=== PATIENT | male | born 1935 | race Two or more races ===

== ENCOUNTER 2019-01-08 14:50 | Inpatient (IN) | payer MEDICARE, BC ==
[~2019-01-08] VITALS: Ht 177.8 cm; Wt 51.0 kg
[2019-01-08 15:10] VITALS: BP 125/75; PULSE 78; RESP 18
[2019-01-08 15:30] VITALS: Ht 177.8 cm; Wt 51.0 kg
[2019-01-08] MEDS ORDERED: ONDANSETRON 4 MG INJ IV PRN (16:30)
[2019-01-08] MEDS ORDERED: ACETAMINOPHEN 325 MG TAB PO PRN (16:30)
[2019-01-08] MEDS ORDERED: ALUMINUM HYDROXIDE 30 ML CUP PO PRN (16:30)
[2019-01-08] MEDS ORDERED: LACTULOSE 30ML CUP PO PRN (16:30)
[2019-01-08] MEDS ORDERED: MAGNESIUM HYDROXIDE 30ML CUP PO PRN (16:30)
[2019-01-08] MEDS ORDERED: BISACODYL 10 MG SUPP PR PRN (16:30)
[2019-01-08 19:30] VITALS: BP 132/68; PULSE 72; RESP 18
[2019-01-08] MEDS ORDERED: MELATONIN 5 MG TABLET PO SCH (21:00)
[2019-01-08] MEDS ORDERED: DOCUSATE SODIUM 100 MG CAP PO SCH (21:00)
[2019-01-08] MEDS: LACTOBACILLUS RHAMNOSUS CAP PO SCH (21:14)
[2019-01-08] MEDS: SENNA TAB PO SCH (21:14)
--- NOTE | 2019-01-08 23:23 | HP ---
DATE OF ADMISSION: 01/08/2019 CHIEF COMPLAINT: Encephalopathy debility and sepsis. HISTORY OF PRESENT ILLNESS: This is an 83-year-old male with a past medical history of dementia and history of weight loss who presented to [facility] after suffering a fall. The patient up on arrival to the outside hospital was noted to be septic secondary to pneumonia. The patient also n oted to have severe hypernatremia, acute kidney injury, non-STEMI, and encephalopathic. The patient was treated with IV fluids, IV diuretics, and IV hydration with resolution of pneumonia and hyponatre marcelo. The patient, however, was also noted to have severe malnutrition, which was unclear. Workup in cluded a CT scan of the brain, which showed no acute pathology. A chest x-ray was obtained, which di d show a right lung nodule but in the setting of pneumonia, it could not be ruled out for possible re action process. The patient was eventually stabilized and transferred to [facility] for further care and rehabilitation. Upon my evaluation of the patient at this time, he is currently lethargic, frail, and weak. The lilian ent is confused, alert, and oriented to name only but in no apparent distress. PAST MEDICAL HISTORY: As stated above, history of dementia and history of recent weight loss. FAMILY HISTORY: No family history of kidney disease. SOCIAL HISTORY: Does not drink, smoke, or do drugs. MEDICATIONS: The patient's medications have been reviewed. PAST SURGICAL HISTORY: Reviewed. REVIEW OF SYSTEMS: A 14-point review of systems conducted. Pertinent positives stated in HPI, other stephenson negative. PHYSICAL EXAMINATION: VITAL SIGNS: Blood pressure is 125/75, respiration 18, pulse 78, and temperature 98.2. HEENT: Head is normocephalic. Bilateral temporal wasting. NECK: Supple. HEART: Regular rate. LUNGS: Show diminished breath sounds at the base. ABDOMEN: Soft. Nontender to palpation. No rebound or guarding. EXTREMITIES: Negative for clubbing or cyanosis. No edema. DERMATOLOGIC: No rashes. MUSCULOSKELETAL: No joint effusion. NEUROLOGIC: No change in exam. MEDICATIONS: The patient's medications have been reviewed. LABORATORY DATA: Currently pending. ASSESSMENT AND PLAN: This is an 83-year-old male who presents with: 1. Acute encephalopathy on dementia. Etiology is felt to be secondary to toxic metabolic. The lilian ent's CT scan at the outside hospital showed no acute cerebrovascular accident. We will continue to monitor. Consider a neurologic evaluation. 2. Sepsis secondary to urinary tract infection and pneumonia. The patient has completed antibiotic course. Continue to monitor. 3. Acute kidney injury. Etiology is secondary to hemodynamics. Renal functions improved. We will follow up renal panel. Urinalysis, monitor closely. 4. Anemia. Monitor hemoglobin and hematocrit levels. 5. Severe malnutrition, weight loss. Etiology is unclear. A chest x-ray did show evidence of pulmo nary nodule, unclear if this is malignancy. Plan is to do a full evaluation. We will repeat chest x -ray. Consider a colonoscopy for age-appropriate cancer screening. We will check the PSA level and monitor closely. 6. Arrhythmia. The patient is currently in sinus rhythm. Continue to monitor. 7. Insomnia. Continue melatonin. 8. Constipation. Continue Colace. 9. Gastrointestinal and deep vein thrombosis prophylaxis. We will start the patient on Lovenox and PPI. Dictated By: GELY KIMBLE DO NR/NTS Conf#: [id number] DID#: [id number] CC: PRIMITIVO WHITEHEAD MD; MICHELLE LUTHER PHD; GELY KIMBLE DO;*EndCC*
[2019-01-09 02:00] VITALS: BP 127/72; PULSE 75; RESP 18
[2019-01-09 07:30] VITALS: BP 103/53; PULSE 72; RESP 18
[2019-01-09] MEDS: DOCUSATE SODIUM 10 MG/ML (10ML CUP) PO SCH ×2 (09:07→20:20)
[2019-01-09] MEDS: LACTOBACILLUS RHAMNOSUS CAP PO SCH ×2 (09:07→20:20)
[2019-01-09] MEDS: FAMOTIDINE 20 MG TAB PO SCH ×2 (09:24→20:20)
[2019-01-09] MEDS: ENOXAPARIN 30 MG/0.3 ML SYG SC SCH (09:28)
[2019-01-09] MEDS ORDERED: MELATONIN 5 MG TABLET PO PRN (10:30)
--- NOTE | 2019-01-09 12:11 | PN ---
DATE: 01/09/2019 SUBJECTIVE: The patient is stable, no events overnight. No fevers or chills. OBJECTIVE: VITAL SIGNS: Blood pressure is 103/53, pulse 72, respirations 18, temperature 98.1. HEENT: Head is normocephalic. There is bilateral temporal wasting. NECK: Supple. HEART: Regular rate. LUNGS: Show diminished breath sounds at the base. ABDOMEN: Soft, nontender to palpation without rebound or guarding. EXTREMITIES: Negative for clubbing, cyanosis, no edema. DERMATOLOGIC: No rashes. MUSCULOSKELETAL: Noted excoriations. NEUROLOGIC: Generalized weakness, no focal deficits. MEDICATIONS: Reviewed. LABORATORY DATA: The patient's urinalysis is bland. Sodium 138, potassium 4.6, BUN 21, creatinine 0 .81, albumin 2.8. White count 6.7, hemoglobin 9.4, platelet count is 214. IMAGING STUDY: The patient's chest x-ray is pending. ASSESSMENT AND PLAN: 1. Acute encephalopathy on top of dementia. Etiology is felt to be toxic metabolic. CT scan showed no acute cerebrovascular accident. Continue to monitor. 2. Sepsis secondary to urinary tract infection and pneumonia. The patient is completing antibiotic course. Continue to monitor. 3. Acute kidney injury. Etiology is secondary to hemodynamics. Renal function is improved. Contin ue current treatment plan. 4. Anemia. Continue to monitor hemoglobin and hematocrit levels. 5. Severe malnutrition and weight loss, etiology is unclear. Chest x-ray an outside hospital showed pulmonary nodule, unclear if this is malignancy or reactive. We will do a full evaluation. We will repeat chest x-ray. Check PSA level. Consider GI consult for colonoscopy. Monitor closely. 6. Arrhythmia, currently in sinus rhythm. Continue to monitor. 7. Constipation. Continue Colace. 8. Insomnia. Continue melatonin. 9. Gastrointestinal and deep vein thrombosis prophylaxis. Continue Lovenox and proton pump inhibito r. Dictated By: GELY KIMBLE DO NR/NTS Conf#: [id number] DID#: [id number] CC: GELY KIMBLE DO; PRIMITIVO WHITEHEAD MD; MICHELLE LUTHER PHD;*EndCC*
[2019-01-09] MEDS: FOLIC ACID 1 MG TAB PO SCH (12:15)
[2019-01-09] MEDS: ASCORBIC ACID 500 MG TAB PO SCH (12:15)
[2019-01-09] MEDS: MULTIVITAMINS THERAPEUTIC TAB PO SCH (12:16)
--- NOTE | 2019-01-09 13:36 | PN ---
Date/Time of Note Date/Time of Note DATE: 01/09/19 TIME: 13:36 Objective Vital Signs Date Temp Pulse Resp B/P (MAP) Pulse Ox O2 O2 Flow FiO2 Time Delivery Rate 01/09/19 98.1 72 18 103/53 97 Room Air 07:30 (70) Intake and Output 01/08/19 01/08/19 01/09/19 1515:00 23:00 07:00 IntakeIntake Total 100 ml BalanceBalance 100 ml Results/Medications Result Diagram: 01/09/19 0608 01/09/19 0608 Results 24 hrs Laboratory Tests Test 01/09/19 06:08 01/09/19 07:25 White Blood Count 6.7 Red Blood Count 3.03 L Hemoglobin 9.4 L Hematocrit 30.1 L Mean Corpuscular Volume 99.3 Mean Corpuscular Hemoglobin 31.0 Mean Corpuscular Hemoglobin Concent 31.2 L Red Cell Distribution Width 16.3 H Platelet Count 214 Mean Platelet Volume 11.2 H Immature Granulocytes % 0.300 Neutrophils % 61.6 Lymphocytes % 22.8 Monocytes % 11.9 H Eosinophils % 3.0 Basophils % 0.4 Nucleated Red Blood Cells % 0.0 Immature Granulocytes # 0.020 Neutrophils # 4.2 Lymphocytes # 1.5 Monocytes # 0.8 Eosinophils # 0.2 Basophils # 0.0 Nucleated Red Blood Cells # 0.0 Sodium Level 138 Potassium Level 4.6 Chloride Level 107 Carbon Dioxide Level 29 Anion Gap 2 L Blood Urea Nitrogen 21 H Creatinine 0.81 Est Glomerular Filtrat Rate mL/min Glucose Level 79 Calcium Level 8.6 Iron Level 40 Total Iron Binding Capacity 231 L Percent Iron Saturation 17 L Ferritin 403.0 H Total Bilirubin 0.0 L Direct Bilirubin 0.00 Indirect Bilirubin 0.0 Aspartate Amino Transf (AST/SGOT) 27 Alanine Aminotransferase (ALT/SGPT) 23 Alkaline Phosphatase 57 Total Protein 5.9 L Albumin 2.8 L Globulin 3.10 Albumin/Globulin Ratio 0.90 Prostate Specific Antigen 0.4 Urine Color STRAW Urine Clarity CLEAR Urine pH 7.0 Urine Specific [place] 1.003 Urine Ketones NEGATIVE Urine Nitrite NEGATIVE Urine Bilirubin NEGATIVE Urine Urobilinogen NEGATIVE Urine Leukocyte Esterase NEGATIVE Urine Hemoglobin NEGATIVE Urine Glucose NEGATIVE Urine Total Protein NEGATIVE Medications Current Medications Acetaminophen (Tylenol Tab) 650 mg Q6H PRN PO MILD PAIN(1-3)OR ELEVATED TEMP; Start 01/08/19 at 16:30 Aluminum Hydroxide (Aluminum Hydroxide) 30 ml Q6H PRN PO GASTROINTESTINAL UPSET; Start 01/08/19 at 16:30 Lactobacillus Acidophilus/ Rhamnosus (Culturelle) 1 cap BID PO Last administered on 01/09/19 09:07; Admin Dose 1 CAP; Start 01/08/19 at 21:00 Ondansetron HCl (Zofran Inj) 4 mg Q6H PRN IV NAUSEA AND/OR VOMITING; Start 01/08/19 at 16:30 Senna (Senokot) 1 tab HS PO Last administered on 01/08/19 21:14; Admin Dose 1 TAB; Start 01/08/19 at 21:00 Magnesium Hydroxide (Milk Of Mag) 30 ml BID PRN PO CONSTIPATION; Start 01/08/19 at 16:30 Lactulose (Enulose) 20 gm DAILY PRN PO CONSTIPATION; Start 01/08/19 at 16:30 Bisacodyl (Dulcolax Supp) 10 mg DAILY PRN [place] CONSTIPATION; Start 01/08/19 at 16:30 Docusate Sodium (Colace Liquid Cup) 100 mg BID PO Last administered on 01/09/19 09:07; Admin Dose 100 MG; Start 01/09/19 at 09:00 Enoxaparin Sodium (Lovenox) 30 mg DAILY SC Last administered on 01/09/19 09:28; Admin Dose 30 MG; Start 01/09/19 at 10:00 Famotidine (Pepcid) 20 mg BID PO Last administered on 01/09/19 09:24; Admin Dose 20 MG; Start 01/09/19 at 10:00 Melatonin (Melatonin) 5 mg HS PRN PO SLEEP; Start 01/09/19 at 10:30 Multivitamins Therapeutic (Theragran) 1 tab DAILY PO Last administered on 01/09/19 12:16; Admin Dose 1 TAB; Start 01/09/19 at 12:00 Folic Acid (Folic Acid) 1 mg DAILY PO Last administered on 01/09/19 12:15; Admin Dose 1 MG; Start 01/09/19 at 12:00 Ascorbic Acid (Vitamin C) 500 mg DAILY PO Last administered on 01/09/19 12:15; Admin Dose 500 MG; Start 01/09/19 at 12:00 PRIMITIVO WHITEHEAD MD Jan 09, 2019 13:36
[2019-01-09 14:00] VITALS: BP 126/82; PULSE 67; RESP 18
--- NOTE | 2019-01-09 14:13 | CONS ---
DATE OF ADMISSION: 01/08/2019 DATE OF CONSULTATION: 01/09/2019 TYPE OF CONSULTATION: Rehabilitation post-admission physician evaluation. REHABILITATION IMPAIRMENT CATEGORY: Toxic metabolic encephalopathy superimposed on mild dementia. ACTIVE COMORBIDITIES: 1. Status post sepsis. 2. Status post pneumonia. 3. Acute kidney injury. 4. Status post non-ST elevation [place]. 5. Right pulmonary nodule. 6. Malnutrition. 7. Dysphagia. 8. Sacral and heel blanchable erythema 8. Impairments in self-care, mobility and cognition. HISTORY OF PRESENT ILLNESS: The patient is an 83-year-old gentleman who has a history of mild dementia who reportedly had been ambulating independently who was noted to have worsening confusion, poor oral intake and increased weakness. The patient presented to [facility] and was noted to have acute on chronic encephalopathy, acute renal failure, sepsis and pneumonia, non-ST elevation [place]. The patient was also noted to have malnutrition. The patient's workup also did reveal right pulmonary nodule. The patient was noted to have significant impairments in self-care, mobility and cognition as compared to baseline and has been cleared to transfer to the rehabilitation unit for comprehensive interdisciplinary rehab care. FUNCTIONAL HISTORY: Prior to recent events as per the family, the patient was independent in self-care tasks and mobility. Currently, the patient requires maximal assist for self-care and mobility tasks. I have reviewed the preadmission screen and patient's current functional status is consistent with the preadmission screen. FAMILY AND SOCIAL HISTORY: The patient lives at home with his son and they hope to have him return there upon discharge. PAST MEDICAL HISTORY: Mild dementia. CURRENT MEDICATIONS: 1. Ambien 5 mg p.o. at bedtime p.r.n. 2. Vancomycin IV, which has been discontinued. Please see medication list. PHYSICAL EXAMINATION: VITAL SIGNS: The patient is currently afebrile with stable vital signs. HEENT: Extraocular motions appear intact. Oropharynx is clear. NECK: Supple. LUNGS: Clear anteriorly. CARDIAC: S1, S2. ABDOMEN: Soft, nontender, positive bowel sounds. NEUROLOGIC: He is awake and alert. He is oriented to person. He will follow simple 1-step commands. He demonstrates antigravity strength in bilateral upper extremity and lower extremity. He does have impaired dynamic balance. PLAN: The patient has been admitted for comprehensive interdisciplinary acute rehab and is anticipated to tolerate 3 hours of daily therapy in divided doses for at least 5/7 days a week. The treatment plan will include: 1. Physical therapy to focus on bed mobility, transfers and household ambulation with the goal of having patient reach a standby assist level. 2. Occupational therapy to focus on hygiene, grooming, dressing, bathing and toileting activities with the goal of having patient reach standby assist level. 3. Speech therapy for full cognitive assessment and retraining in addition to dysphagia management with the goal of having patient return to baseline cognition and meet nutritional needs by mouth. 4. We will have neuropsychology for full cognitive assessment and oversight. We will also have physical therapy and occupational therapy carryover of cognitive functional tasks. 5. Rehabilitation nursing for carryover of therapeutic interventions, the goal of continent of bowel and bladder and the goal of improved skin integrity with offloading, improved nutrition and mobility. REHABILITATION BARRIER: Cognition. INTERVENTION FOR BARRIER: Interdisciplinary approach. ESTIMATED LENGTH OF STAY: 14 days. DISPOSITION GOAL: Home. I acknowledge that I performed a full physical examination on this patient within 24 hours of admission to the rehabilitation unit. I believe the patient is a good candidate for comprehensive interdisciplinary rehab care and is anticipated to make reasonable goals in a reasonable period of time as outlined above. Dictated By: PRIMITIVO SILVA/EUGENE Conf#: [id number] DID#: [id number] CC: GELY KIMBLE DO; MICHELLE LUTHER PHD;*EndCC* MTDD
[2019-01-09 19:27] VITALS: BP 114/62; PULSE 73; RESP 18
[2019-01-09] MEDS: SENNA TAB PO SCH (20:20)
[2019-01-10 02:11] VITALS: BP 114/77; PULSE 68; RESP 18
[2019-01-10 07:00] VITALS: BP 138/63; PULSE 54; RESP 17
[2019-01-10] MEDS: LACTOBACILLUS RHAMNOSUS CAP PO SCH ×2 (08:08→20:46)
[2019-01-10] MEDS: FAMOTIDINE 20 MG TAB PO SCH ×2 (08:08→20:46)
[2019-01-10] MEDS: ASCORBIC ACID 500 MG TAB PO SCH (08:08)
[2019-01-10] MEDS: MULTIVITAMINS THERAPEUTIC TAB PO SCH (08:08)
[2019-01-10] MEDS: FOLIC ACID 1 MG TAB PO SCH (08:08)
[2019-01-10] MEDS: DOCUSATE SODIUM 10 MG/ML (10ML CUP) PO SCH ×3 (08:08→20:46)
[2019-01-10] MEDS: ENOXAPARIN 30 MG/0.3 ML SYG SC SCH (08:09)
--- NOTE | 2019-01-10 08:44 | PN ---
Date/Time of Note Date/Time of Note DATE: 01/10/19 TIME: 08:42 Assessment/Plan VTE Prophylaxis Risk score (from Ns)>0 risk: 4 SCD applied (from Ns): No SCD contraindicated: other Pharmacological prophylaxis: other Lines/Catheters IV [facility]atheter Type [facility]from [facility] [place] [facility] Urinary Cath still in place: No Assessment/Plan Hospital Course medicine follow up HISTORY OF PRESENT ILLNESS: This is an 83-year-old male with a past medical history of dementia and history of weight loss who presented to [facility] after suffering a fall. The patient upon arrival to the outside hospital was noted to be septic secondary to pneumonia. The patient also noted to have severe hypernatremia, acute kidney injury, non-STEMI, and encephalopathic. The patient was treated with IV fluids, IV diuretics, and IV hydration with resolution of pneumonia and hyponatremia. The patient, however, was also noted to have severe malnutrition, which was unclear. Workup included a CT scan of the brain, which showed no acute pathology. A chest x-ray was obtained, which did show a right lung nodule but in the setting of pneumonia, it could not be ruled out for possible reaction process. The patient was eventually stabilized and transferred to [facility] for further care and rehabilitation. The patient is confused, alert, and oriented to name only but in no apparent distress. PHYSICAL EXAMINATION: HEENT: Head is normocephalic. Bilateral temporal wasting. NECK: Supple. HEART: Regular rate. LUNGS: Show diminished breath sounds at the base. ABDOMEN: Soft. Nontender to palpation. No rebound or guarding. EXTREMITIES: Negative for clubbing or cyanosis. No edema. DERMATOLOGIC: No rashes. MUSCULOSKELETAL: No joint effusion. NEUROLOGIC: No change in exam. MEDICATIONS: The patient's medications have been reviewed. LABORATORY DATA: reviewed ASSESSMENT AND PLAN: This is an 83-year-old male who presents with: 1. Acute encephalopathy on dementia. Etiology is felt to be secondary to toxic metabolic. The patient's CT scan at the outside hospital showed no acute cerebrovascular accident. We will continue to monitor. Consider a neurologic evaluation. 2. Sepsis secondary to urinary tract infection and pneumonia. The patient has completed antibiotic course. Continue to monitor. 3. Acute kidney injury. Etiology is secondary to hemodynamics. Renal functions improved. We will follow up renal panel. Urinalysis, monitor closely. 4. Anemia. Monitor hemoglobin and hematocrit levels. 5. Severe malnutrition, weight loss. Etiology is unclear. A chest x-ray did show evidence of pulmonary nodule, unclear if this is malignancy. Plan is to do a full evaluation. We will repeat chest x-ray. Consider a colonoscopy for age- appropriate cancer screening. We will check the PSA level and monitor closely. 6. Arrhythmia. The patient is currently in sinus rhythm. Continue to monitor. 7. Insomnia. Continue melatonin. 8. Constipation. Continue Colace. 9. Gastrointestinal and deep vein thrombosis prophylaxis. We will start the patient on Lovenox and PPI. Result Diagram: 01/09/19 0608 01/09/19 0608 Exam/Review of Systems Exam Vitals Vital Signs Date Temp Pulse Resp B/P (MAP) Pulse Ox O2 O2 Flow FiO2 Time Delivery Rate 01/10/19 98.2 68 18 114/77 97 Room Air 02:11 (89) Intake and Output 01/09/19 01/09/19 01/10/19 1515:00 23:00 07:00 IntakeIntake Total 550 ml 1400 ml 1950 ml BalanceBalance 550 ml 1400 ml 1950 ml Medications Medication Current Medications Acetaminophen (Tylenol Tab) 650 mg Q6H PRN PO MILD PAIN(1-3)OR ELEVATED TEMP; Start 01/08/19 at 16:30 Aluminum Hydroxide (Aluminum Hydroxide) 30 ml Q6H PRN PO GASTROINTESTINAL UPSET; Start 01/08/19 at 16:30 Lactobacillus Acidophilus/ Rhamnosus (Culturelle) 1 cap BID PO Last administer ed on 01/10/19at 08:08; Admin Dose 1 CAP; Start 01/08/19 at 21:00 Ondansetron HCl (Zofran Inj) 4 mg Q6H PRN IV NAUSEA AND/OR VOMITING; Start 01/08/19 at 16:30 Senna (Senokot) 1 tab HS PO Last administered on 01/09/19at 20:20; Admin Dose 1 TAB; Start 01/08/19 at 21:00 Magnesium Hydroxide (Milk Of Mag) 30 ml BID PRN PO CONSTIPATION; Start 01/08/19 at 16:30 Lactulose (Enulose) 20 gm DAILY PRN PO CONSTIPATION; Start 01/08/19 at 16:30 Bisacodyl (Dulcolax Supp) 10 mg DAILY PRN [place] CONSTIPATION; Start 01/08/19 at 16:30 Docusate Sodium (Colace Liquid Cup) 100 mg BID PO Last administered on 01/10/19 08:08; Admin Dose 100 MG; Start 01/09/19 at 09:00 Enoxaparin Sodium (Lovenox) 30 mg DAILY SC Last administered on 01/10/19 08:09; Admin Dose 30 MG; Start 01/09/19 at 10:00 Famotidine (Pepcid) 20 mg BID PO Last administered on 01/10/19 08:08; Admin Dose 20 MG; Start 01/09/19 at 10:00 Melatonin (Melatonin) 5 mg HS PRN PO SLEEP; Start 01/09/19 at 10:30 Multivitamins Therapeutic (Theragran) 1 tab DAILY PO Last administered on 01/10/19 08:08; Admin Dose 1 TAB; Start 01/09/19 at 12:00 Folic Acid (Folic Acid) 1 mg DAILY PO Last administered on 01/10/19 08:08; Admin Dose 1 MG; Start 01/09/19 at 12:00 Ascorbic Acid (Vitamin C) 500 mg DAILY PO Last administered on 01/10/19 08:08; Admin Dose 500 MG; Start 01/09/19 at 12:00 YOANNA ASHRAF DO Jan 10, 2019 08:43
--- NOTE | 2019-01-10 08:50 | PN ---
Date/Time of Note Date/Time of Note DATE: 01/10/19 TIME: 08:49 Subjective Awake Objective Vital Signs Date Temp Pulse Resp B/P (MAP) Pulse Ox O2 O2 Flow FiO2 Time Delivery Rate 01/10/19 98.2 68 18 114/77 97 Room Air 02:11 (89) Intake and Output 01/09/19 01/09/19 01/10/19 1515:00 23:00 07:00 IntakeIntake Total 550 ml 1400 ml 1950 ml BalanceBalance 550 ml 1400 ml 1950 ml Exam pulm-cta mod transfer Results/Medications Result Diagram: 01/09/1960701/09/19607 Medications Current Medications Acetaminophen (Tylenol Tab) 650 mg Q6H PRN PO MILD PAIN(1-3)OR ELEVATED TEMP; Start 01/08/19 at 16:30 Aluminum Hydroxide (Aluminum Hydroxide) 30 ml Q6H PRN PO GASTROINTESTINAL UPSET; Start 01/08/19 at 16:30 Lactobacillus Acidophilus/ Rhamnosus (Culturelle) 1 cap BID PO Last administered on 01/10/19at 08:08; Admin Dose 1 CAP; Start 01/08/19 at 21:00 Ondansetron HCl (Zofran Inj) 4 mg Q6H PRN IV NAUSEA AND/OR VOMITING; Start 01/08/19 at 16:30 Senna (Senokot) 1 tab HS PO Last administered on 01/09/19at 20:20; Admin Dose 1 TAB; Start 01/08/19 at 21:00 Magnesium Hydroxide (Milk Of Mag) 30 ml BID PRN PO CONSTIPATION; Start 01/08/19 at 16:30 Lactulose (Enulose) 20 gm DAILY PRN PO CONSTIPATION; Start 01/08/19 at 16:30 Bisacodyl (Dulcolax Supp) 10 mg DAILY PRN [place] CONSTIPATION; Start 01/08/19 at 16:30 Docusate Sodium (Colace Liquid Cup) 100 mg BID PO Last administered on 01/10/19at 08:08; Admin Dose 100 MG; Start 01/09/19 at 09:00 Enoxaparin Sodium (Lovenox) 30 mg DAILY SC Last administered on 01/10/19at 08:09; Admin Dose 30 MG; Start 01/09/19 at 10:00 Famotidine (Pepcid) 20 mg BID PO Last administered on 01/10/19 08:08; Admin Dose 20 MG; Start 01/09/19 at 10:00 Melatonin (Melatonin) 5 mg HS PRN PO SLEEP; Start 01/09/19 at 10:30 Multivitamins Therapeutic (Theragran) 1 tab DAILY PO Last administered on 01/10/19 08:08; Admin Dose 1 TAB; Start 01/09/19 at 12:00 Folic Acid (Folic Acid) 1 mg DAILY PO Last administered on 01/10/19 08:08; Admin Dose 1 MG; Start 01/09/19 at 12:00 Ascorbic Acid (Vitamin C) 500 mg DAILY PO Last administered on 01/10/19 08:08; Admin Dose 500 MG; Start 01/09/19 at 12:00 Assessment/Plan Additional Assessment/Plan Rehab- Toxic metabolic encephalopathy superimposed on mild dementia; Debility Tolerating rehab Integ- continue wound care Status post sepsis. Status post pneumonia. Acute kidney injury. Status post non-ST elevation [place]. Right pulmonary nodule. Malnutrition- improving PO intake Dysphagia-speech PRIMITIVO WHITEHEAD MD Jan 10, 2019 08:50
[2019-01-10 14:30] VITALS: BP 148/64; PULSE 64; RESP 18
[2019-01-10 20:00] VITALS: BP 133/63; PULSE 55; RESP 18
[2019-01-10] MEDS: SENNA TAB PO SCH (20:46)
[2019-01-11 02:30] VITALS: BP 142/63; PULSE 60; RESP 16
--- NOTE | 2019-01-11 07:49 | PN ---
Date/Time of Note Date/Time of Note DATE: 01/11/19 TIME: 07:49 Assessment/Plan VTE Prophylaxis Risk score (from Ns)>0 risk: 4 SCD applied (from Ns): No SCD contraindicated: other Pharmacological prophylaxis: other Lines/Catheters IV Catheter Type (from [facility]): Saline Lock Urinary Cath still in place: No Assessment/Plan Hospital Course medicine follow up HISTORY OF PRESENT ILLNESS: This is an 83-year-old male with a past medical history of dementia and history of weight loss who presented to [facility] after suffering a fall. The patient upon arrival to the outside hospital was noted to be septic secondary to pneumonia. The patient also noted to have severe hypernatremia, acute kidney injury, non-STEMI, and encephalopathic. The patient was treated with IV fluids, IV diuretics, and IV hydration with resolution of pneumonia and hyponatremia. The patient, however, was also noted to have severe malnutrition, which was unclear. Workup included a CT scan of the brain, which showed no acute pathology. A chest x-ray was obtained, which did show a right lung nodule but in the setting of pneumonia, it could not be ruled out for possible reaction process. The patient was eventually stabilized and transferred to [facility] for further care and rehabilitation. The patient is confused, alert, and oriented to name only but in no apparent distress. PHYSICAL EXAMINATION: HEENT: Head is normocephalic. Bilateral temporal wasting. NECK: Supple. HEART: Regular rate. LUNGS: Show diminished breath sounds at the base. ABDOMEN: Soft. Nontender to palpation. No rebound or guarding. EXTREMITIES: Negative for clubbing or cyanosis. No edema. DERMATOLOGIC: No rashes. MUSCULOSKELETAL: No joint effusion. NEUROLOGIC: No change in exam. MEDICATIONS: The patient's medications have been reviewed. LABORATORY DATA: reviewed ASSESSMENT AND PLAN: This is an 83-year-old male who presents with: 1. Acute encephalopathy on dementia. Etiology is felt to be secondary to toxic metabolic. The patient's CT scan at the outside hospital showed no acute cerebrovascular accident. We will continue to monitor. Consider a neurologic evaluation. 2. Sepsis secondary to urinary tract infection and pneumonia. The patient has completed antibiotic course. Continue to monitor. 3. Acute kidney injury. Etiology is secondary to hemodynamics. Renal functions improved. We will follow up renal panel. Urinalysis, monitor closely. 4. Anemia. Monitor hemoglobin and hematocrit levels. 5. Severe malnutrition, weight loss. Etiology is unclear. A chest x-ray did show evidence of pulmonary nodule, unclear if this is malignancy. Plan is to do a full evaluation. We will repeat chest x-ray. Consider a colonoscopy for age- appropriate cancer screening. We will check the PSA level and monitor closely. 6. Arrhythmia. The patient is currently in sinus rhythm. Continue to monitor. 7. Insomnia. Continue melatonin. 8. Constipation. Continue Colace. 9. Gastrointestinal and deep vein thrombosis prophylaxis. We will start the patient on Lovenox and PPI. Result Diagram: 01/09/19 0601/09/19 06 Exam/Review of Systems Exam Vitals Vital Signs Date Temp Pulse Resp B/P (MAP) Pulse Ox O2 O2 Flow FiO2 Time Delivery Rate 01/11/19 97.0 60 16 142/63 96 Room Air 02:30 (89) Intake and Output 01/10/19 01/10/19 01/11/19 1515:00 23:00 07:00 IntakeIntake Total 780 ml 240 ml BalanceBalance 780 ml 240 ml Medications Medication Current Medications Acetaminophen (Tylenol Tab) 650 mg Q6H PRN PO MILD PAIN(1-3)OR ELEVATED TEMP; Start 01/08/19 at 16:30 Aluminum Hydroxide (Aluminum Hydroxide) 30 ml Q6H PRN PO GASTROINTESTINAL UPSET; Start 01/08/19 at 16:30 Lactobacillus Acidophilus/ Rhamnosus (Culturelle) 1 cap BID PO Last administered on 01/10/19at 20:46; Admin Dose 1 CAP; Start 01/08/19 at 21:00 Ondansetron HCl (Zofran Inj) 4 mg Q6H PRN IV NAUSEA AND/OR VOMITING; Start 01/08/19 at 16:30 Senna (Senokot) 1 tab HS PO Last administered on 01/10/19at 20:46; Admin Dose 1 TAB; Start 01/08/19 at 21:00 Magnesium Hydroxide (Milk Of Mag) 30 ml BID PRN PO CONSTIPATION; Start 01/08/19 at 16:30 Lactulose (Enulose) 20 gm DAILY PRN PO CONSTIPATION; Start 01/08/19 at 16:30 Bisacodyl (Dulcolax Supp) 10 mg DAILY PRN [place] CONSTIPATION; Start 01/08/19 at 16:30 Docusate Sodium (Colace Liquid Cup) 100 mg BID PO Last administered on 01/10/19 20:46; Admin Dose 100 MG; Start 01/09/19 at 09:00 Enoxaparin Sodium (Lovenox) 30 mg DAILY SC Last administered on 01/10/19 08:09; Admin Dose 30 MG; Start 01/09/19 at 10:00 Famotidine (Pepcid) 20 mg BID PO Last administered on 01/10/19at 20:46; Admin Dose 20 MG; Start 01/09/19 at 10:00 Melatonin (Melatonin) 5 mg HS PRN PO SLEEP; Start 01/09/19 at 10:30 Multivitamins Therapeutic (Theragran) 1 tab DAILY PO Last administered on 01/10/19 08:08; Admin Dose 1 TAB; Start 01/09/19 at 12:00 Folic Acid (Folic Acid) 1 mg DAILY PO Last administered on 01/10/19 08:08; Admin Dose 1 MG; Start 01/09/19 at 12:00 Ascorbic Acid (Vitamin C) 500 mg DAILY PO Last administered on 01/10/19 08:08; Admin Dose 500 MG; Start 01/09/19 at 12:00 YOANNA ASHRAF DO Jan 11, 2019 07:49
[2019-01-11] MEDS: ENOXAPARIN 30 MG/0.3 ML SYG SC SCH (08:15)
[2019-01-11] MEDS: FAMOTIDINE 20 MG TAB PO SCH ×2 (08:16→20:13)
[2019-01-11] MEDS: FOLIC ACID 1 MG TAB PO SCH (08:16)
[2019-01-11] MEDS: MULTIVITAMINS THERAPEUTIC TAB PO SCH (08:16)
[2019-01-11] MEDS: LACTOBACILLUS RHAMNOSUS CAP PO SCH ×2 (08:16→20:12)
[2019-01-11] MEDS: ASCORBIC ACID 500 MG TAB PO SCH (08:16)
[2019-01-11] MEDS: DOCUSATE SODIUM 10 MG/ML (10ML CUP) PO SCH ×2 (08:16→20:17)
[2019-01-11 08:19] VITALS: BP 136/64; PULSE 56; RESP 16
[2019-01-11 16:43] VITALS: BP 129/62; PULSE 59; RESP 16
[2019-01-11 20:00] VITALS: BP 132/65; PULSE 60; RESP 16
[2019-01-11] MEDS: SENNA TAB PO SCH (20:17)
[2019-01-12 02:00] VITALS: BP 134/73; PULSE 55; RESP 18
[2019-01-12 08:00] VITALS: BP 135/70; PULSE 60; RESP 18
[2019-01-12] MEDS: DOCUSATE SODIUM 10 MG/ML (10ML CUP) PO SCH ×2 (08:52→21:00)
[2019-01-12] MEDS: LACTOBACILLUS RHAMNOSUS CAP PO SCH ×2 (08:53→20:38)
[2019-01-12] MEDS: FOLIC ACID 1 MG TAB PO SCH (08:53)
[2019-01-12] MEDS: MULTIVITAMINS THERAPEUTIC TAB PO SCH (08:53)
[2019-01-12] MEDS: ASCORBIC ACID 500 MG TAB PO SCH (08:53)
[2019-01-12] MEDS: FAMOTIDINE 20 MG TAB PO SCH ×2 (08:53→20:38)
[2019-01-12] MEDS: ENOXAPARIN 30 MG/0.3 ML SYG SC SCH (08:54)
--- NOTE | 2019-01-12 09:07 | PN ---
DATE: 01/12/2019 SUBJECTIVE: The patient is stable, no events overnight. No fevers, chills, nausea, or vomiting. OBJECTIVE: VITAL SIGNS: Blood pressure is 135/70, respirations 18, pulse 60, temperature 98.5. HEENT: Head is normocephalic. NECK: Supple. HEART: Regular rate. LUNGS: Show diminished breath sounds at the base. ABDOMEN: Soft, nontender to palpation without rebound or guarding. EXTREMITIES: Negative for clubbing, cyanosis, no edema. DERMATOLOGIC: No rashes. MUSCULOSKELETAL: No joint effusion. NEUROLOGIC: No change in exam. MEDICATIONS: Reviewed. LABORATORY DATA: Shows sodium 138, potassium 4.6, BUN 21, creatinine 0.81. The patient's iron satur ation is 17, ferritin 403. White count 6.7, hemoglobin 9.4, platelet count is 214. ASSESSMENT AND PLAN: 1. Acute encephalopathy on top of dementia. Etiology is toxic metabolic. CT scan at outside hospit al showed no acute events. Continue to monitor. 2. Anemia. The patient has evidence of iron deficiency. Stool occult blood is pending. We will st art the patient on course of IV iron. May consider further evaluation. 3. Severe malnutrition, weight loss. Etiology is unclear if this is due to dementia with decreased oral intake. We would, however, do age appropriate cancer screening. A PSA level was negative. [facility] st x-ray did show right lower lobe air space disease. Unclear if this is a nodule. We will continue to monitor. We will consider CT scan of the chest. 4. History of pulmonary nodule. We will order a CT scan of the chest for further evaluation. 5. Arrhythmia. Continue to monitor. 6. Insomnia. Continue melatonin. 7. Constipation. Continue Colace. 8. Status post acute kidney injury. 9. Status post sepsis secondary to urinary tract infection, pneumonia. 10. Gastrointestinal and deep vein thrombosis prophylaxis. Dictated By: GELY KIMBLE DO NR/NTS Conf#: [id number] DID#: [id number] CC: MICHELLE LUTHER PHD; GELY KIMBLE DO; PRIMITIVO WHITEHEAD MD;*EndCC*
[2019-01-12] MEDS: COLLAGENASE 5 GM (UD JAR) TOP SCH (11:54)
--- NOTE | 2019-01-12 12:23 | PN ---
Date/Time of Note Date/Time of Note DATE: 01/12/19 TIME: 12:20 Objective Vital Signs Date Temp Pulse Resp B/P (MAP) Pulse Ox O2 O2 Flow FiO2 Time Delivery Rate 01/12/19 98.5 60 18 135/70 95 Room Air 08:00 (91) Intake and Output 01/11/19 01/11/19 01/12/19 1515:00 23:00 07:00 IntakeIntake Total 360 ml 1200 ml 480 ml BalanceBalance 360 ml 1200 ml 480 ml Exam INTERDISCIPLINARY TEAM CONFERENCE Physical Exam: Pulm-cta Abd-abd BOWEL- Cont BLADDER-Cont SKIN- patient with skin integrity issues on sacrum, Right lower extremity- followed by wound care team OT- DRESSING- max/dep BATHING-max/dep TOILETING-max/dep PT- BED MOBILITY-max TRANSFERS-max WHEELCHAIR MOBILITY- MAX SPEECH- max cognition Dysphagia- on soft and thin liquid diet A/P- Interdisciplinary team conference held today. Please see interdisciplinary sheet. Working toward d.c. on 01/26 with post discharge follow up of physical therapy, occupational therapy, home health nursing Results/Medications Result Diagram: 01/09/19 0608 01/09/19 0608 Results 24 hrs Laboratory Tests Test 01/11/19 14:30 Stool Occult Blood NEGATIVE Medications Current Medications Acetaminophen (Tylenol Tab) 650 mg Q6H PRN PO MILD PAIN(1-3)OR ELEVATED TEMP; Start 01/08/19 at 16:30 Aluminum Hydroxide (Aluminum Hydroxide) 30 ml Q6H PRN PO GASTROINTESTINAL UPSET; Start 01/08/19 at 16:30 Lactobacillus Acidophilus/ Rhamnosus (Culturelle) 1 cap BID PO Last administered on 01/12/19at 08:53; Admin Dose 1 CAP; Start 01/08/19 at 21:00 Ondansetron HCl (Zofran Inj) 4 mg Q6H PRN IV NAUSEA AND/OR VOMITING; Start 01/08/19 at 16:30 Senna (Senokot) 1 tab HS PO Last administered on 01/10/19at 20:46; Admin Dose 1 TAB; Start 01/08/19 at 21:00 Magnesium Hydroxide (Milk Of Mag) 30 ml BID PRN PO CONSTIPATION; Start 01/08/19 at 16:30 Lactulose (Enulose) 20 gm DAILY PRN PO CONSTIPATION; Start 01/08/19 at 16:30 Bisacodyl (Dulcolax Supp) 10 mg DAILY PRN [place] CONSTIPATION; Start 01/08/19 at 16:30 Docusate Sodium (Colace Liquid Cup) 100 mg BID PO Last administered on 01/12/19 08:52; Admin Dose 100 MG; Start 01/09/19 at 09:00 Enoxaparin Sodium (Lovenox) 30 mg DAILY SC Last administered on 01/12/19 08:54; Admin Dose 30 MG; Start 01/09/19 at 10:00 Famotidine (Pepcid) 20 mg BID PO Last administered on 01/12/19 08:53; Admin Dose 20 MG; Start 01/09/19 at 10:00 Melatonin (Melatonin) 5 mg HS PRN PO SLEEP; Start 01/09/19 at 10:30 Multivitamins Therapeutic (Theragran) 1 tab DAILY PO Last administered on 01/12/19 08:53; Admin Dose 1 TAB; Start 01/09/19 at 12:00 Folic Acid (Folic Acid) 1 mg DAILY PO Last administered on 01/12/19 08:53; Admin Dose 1 MG; Start 01/09/19 at 12:00 Ascorbic Acid (Vitamin C) 500 mg DAILY PO Last administered on 01/12/19 08:53; Admin Dose 500 MG; Start 01/09/19 at 12:00 Collagenase (Santyl) 1 applic DAILY TOP Last administered on 01/12/19 11:54; Admin Dose 1 APPLIC; Start 01/12/19 at 09:30 PRIMITIVO WHITEHEAD MD Jan 12, 2019 12:23
[2019-01-12 14:00] VITALS: BP 125/75; PULSE 60; RESP 18
[2019-01-12 20:32] VITALS: BP 95/57; PULSE 62; RESP 18
[2019-01-12] MEDS: SENNA TAB PO SCH (21:00)
[2019-01-13 02:00] VITALS: BP 117/55; PULSE 54; RESP 18
[2019-01-13 07:00] VITALS: BP 137/63; PULSE 53; RESP 18
--- NOTE | 2019-01-13 08:22 | PN ---
DATE: 01/13/2019 SUBJECTIVE: The patient remains confused, but stable. No events overnight. The patient had a CT sc an of his chest yesterday. Please note I also spoke with the patient's son, Manoj, regarding the yolanda gomez's weight loss and CT scan findings. He was made aware. No other events noted. OBJECTIVE: VITAL SIGNS: Blood pressure is 117/55, respirations 18, pulse 84, temperature 97.8. HEENT: Head is normocephalic. NECK: Supple. HEART: Regular rate. LUNGS: Show diminished breath sounds at the base. ABDOMEN: Soft, nontender to palpation. No rebound or guarding. EXTREMITIES: Negative for clubbing, cyanosis, no edema. DERMATOLOGIC: No rashes. MUSCULOSKELETAL: Positive wound. NEUROLOGIC: No focal deficits. MEDICATIONS: Reviewed. LABORATORY DATA: Shows sodium 141, potassium 4.8, BUN 22, creatinine 1.02. White count 5.3, hemoglo bin 10.4, platelet count 261. ASSESSMENT AND PLAN: 1. Acute encephalopathy and dementia, etiology is toxic metabolic. Continue to monitor. 2. Anemia with evidence of iron deficiency. The patient will be started on IV iron. Stool occult b lood was negative. 3. Severe malnutrition and weight loss. Etiology may have been secondary to poor p.o. intake accord ing to the patient's son. However, an underlying malignancy is a consideration. A CT scan of the est did show evidence of nodules. The patient's other malignancy workup including PSA level was with in normal limits. The patient may require an outpatient colonoscopy. 4. Pulmonary nodule. CT scan was reviewed. A pulmonary consult was placed. 5. Sepsis secondary to pneumonia. The patient is status post antibiotic therapy. 6. Arrhythmia. Continue to monitor. 7. Insomnia. Continue melatonin. 8. Constipation. Continue Colace. 9. Status post acute kidney injury. 10. Gastrointestinal and deep vein thrombosis prophylaxis. 11. Moderate right pleural effusion and left pleural effusion, possibly due to recent pneumonia. Co ntinue to monitor. Follow up with pulmonary for further recommendations. Dictated By: GELY KIMBLE DO NR/NTS Conf#: [id number] DID#: [id number] CC: GELY KIMBLE DO; PRIMITIVO WHITEHEAD MD; MICHELLE LUTHER PHD;*[facility]*
[2019-01-13] MEDS: ASCORBIC ACID 500 MG TAB PO SCH (08:56)
[2019-01-13] MEDS: FAMOTIDINE 20 MG TAB PO SCH ×2 (08:56→20:47)
[2019-01-13] MEDS: LACTOBACILLUS RHAMNOSUS CAP PO SCH ×2 (08:56→20:48)
[2019-01-13] MEDS: MULTIVITAMINS THERAPEUTIC TAB PO SCH (08:56)
[2019-01-13] MEDS: FOLIC ACID 1 MG TAB PO SCH (08:56)
[2019-01-13] MEDS: DOCUSATE SODIUM 10 MG/ML (10ML CUP) PO SCH ×2 (08:57→20:50)
[2019-01-13] MEDS: ENOXAPARIN 30 MG/0.3 ML SYG SC SCH (09:04)
[2019-01-13] MEDS: SOD FERRIC GLUC COMPLX 125 MG in SOD CHLORIDE 0.9% 100 ML IVPB SCH (12:31)
[2019-01-13] MEDS: COLLAGENASE 5 GM (UD JAR) TOP SCH (12:49)
--- NOTE | 2019-01-13 13:39 | PN ---
Date/Time of Note Date/Time of Note DATE: 01/13/19 TIME: 13:36 Subjective Patient with improving mobility status, and po intake Objective Vital Signs Date Temp Pulse Resp B/P (MAP) Pulse Ox O2 O2 Flow FiO2 Time Delivery Rate 01/13/19 97.8 53 18 137/63 99 Room Air 07:00 (87) Intake and Output 01/12/19 01/12/19 01/13/19 1515:00 23:00 07:00 IntakeIntake Total 500 ml 200 ml BalanceBalance 500 ml 200 ml Exam pulm-cta mod ambulation 50 feet Results/Medications Result Diagram: 01/13/19 0703 01/13/19 0703 Results 24 hrs Laboratory Tests Test 01/13/19 07:03 White Blood Count 5.3 # Red Blood Count 3.31 L Hemoglobin 10.4 L Hematocrit 32.9 L Mean Corpuscular Volume 99.4 Mean Corpuscular Hemoglobin 31.4 Mean Corpuscular Hemoglobin Concent 31.6 L Red Cell Distribution Width 17.0 H Platelet Count 261 # Mean Platelet Volume 10.6 H Immature Granulocytes % 0.200 Neutrophils % 45.8 Lymphocytes % 37.4 Monocytes % 10.4 Eosinophils % 5.3 Basophils % 0.9 Nucleated Red Blood Cells % 0.0 Immature Granulocytes # 0.010 Neutrophils # 2.4 Lymphocytes # 2.0 Monocytes # 0.6 Eosinophils # 0.3 Basophils # 0.1 Nucleated Red Blood Cells # 0.0 Sodium Level 141 Potassium Level 4.8 Chloride Level 106 Carbon Dioxide Level 34 H Anion Gap 1 L Blood Urea Nitrogen 22 H Creatinine 1.02 Est Glomerular Filtrat Rate mL/min Glucose Level 77 Calcium Level 9.2 Phosphorus Level 3.7 Magnesium Level 2.0 Medications Current Medications Acetaminophen (Tylenol Tab) 650 mg Q6H PRN PO MILD PAIN(1-3)OR ELEVATED TEMP; Start 01/08/19 at 16:30 Aluminum Hydroxide (Aluminum Hydroxide) 30 ml Q6H PRN PO GASTROINTESTINAL UPSET; Start 01/08/19 at 16:30 Lactobacillus Acidophilus/ Rhamnosus (Culturelle) 1 cap BID PO Last administered on 01/13/19at 08:56; Admin Dose 1 CAP; Start 01/08/19 at 21:00 Ondansetron HCl (Zofran Inj) 4 mg Q6H PRN IV NAUSEA AND/OR VOMITING; Start 01/08/19 at 16:30 Senna (Senokot) 1 tab HS PO Last administered on 01/10/19 20:46; Admin Dose 1 TAB; Start 01/08/19 at 21:00 Magnesium Hydroxide (Milk Of Mag) 30 ml BID PRN PO CONSTIPATION; Start 01/08/19 at 16:30 Lactulose (Enulose) 20 gm DAILY PRN PO CONSTIPATION; Start 01/08/19 at 16:30 Bisacodyl (Dulcolax Supp) 10 mg DAILY PRN [place] CONSTIPATION; Start 01/08/19 at 1 6:30 Docusate Sodium (Colace Liquid Cup) 100 mg BID PO Last administered on 01/13/19 08:57; Admin Dose 100 MG; Start 01/09/19 at 09:00 Enoxaparin Sodium (Lovenox) 30 mg DAILY SC Last administered on 01/13/19 09:04; Admin Dose 30 MG; Start 01/09/19 at 10:00 Famotidine (Pepcid) 20 mg BID PO Last administered on 01/13/19 08:56; Admin Dose 20 MG; Start 01/09/19 at 10:00 Melatonin (Melatonin) 5 mg HS PRN PO SLEEP; Start 01/09/19 at 10:30 Multivitamins Therapeutic (Theragran) 1 tab DAILY PO Last administered on 01/13/19 08:56; Admin Dose 1 TAB; Start 01/09/19 at 12:00 Folic Acid (Folic Acid) 1 mg DAILY PO Last administered on 01/13/19 08:56; Admin Dose 1 MG; Start 01/09/19 at 12:00 Ascorbic Acid (Vitamin C) 500 mg DAILY PO Last administered on 01/13/19 08:56; Admin Dose 500 MG; Start 01/09/19 at 12:00 Collagenase (Santyl) 1 applic DAILY TOP Last administered on 01/13/19 12:49; Admin Dose 1 APPLIC; Start 01/12/19 at 09:30 Ferric Sodium Gluconate Complex 125 mg/Sodium Chloride 110 ml @ 110 mls/hr DAILY@1300 IVPB Last administered on 01/13/19 12:31; Admin Dose 110 MLS/HR; Start 01/13/19 at 13:00; Stop 01/17/19 at 13:59 Assessment/Plan Additional Assessment/Plan Rehab- Toxic metabolic encephalopathy superimposed on mild dementia; Debility Good functional progress Integ- continue wound care, off loading. Son reportedly noted the right lower pressue injury from a fall at home before. Martha from wound care team to follow up Status post sepsis. Status post pneumonia. Acute kidney injury. Status post non-ST elevation MS. Right pulmonary nodule- work up in progress. Chest CT performed, pulm consult Malnutrition- improving PO intake Dysphagia-speech PRIMITIVO WHITEHEAD MD Jan 13, 2019 13:39
[2019-01-13 14:00] VITALS: BP 130/60; PULSE 60; RESP 18
[2019-01-13 19:58] VITALS: BP 115/57; PULSE 70; RESP 18
[2019-01-13] MEDS: SENNA TAB PO SCH (20:48)
[2019-01-14 02:00] VITALS: BP 105/54; PULSE 60; RESP 18
[2019-01-14 07:30] VITALS: BP 118/58; PULSE 60; RESP 20
[2019-01-14] MEDS: FOLIC ACID 1 MG TAB PO SCH (08:56)
[2019-01-14] MEDS: ASCORBIC ACID 500 MG TAB PO SCH (08:56)
[2019-01-14] MEDS: FAMOTIDINE 20 MG TAB PO SCH ×2 (08:56→20:55)
[2019-01-14] MEDS: MULTIVITAMINS THERAPEUTIC TAB PO SCH (08:56)
[2019-01-14] MEDS: LACTOBACILLUS RHAMNOSUS CAP PO SCH ×2 (08:56→20:55)
[2019-01-14] MEDS: DOCUSATE SODIUM 10 MG/ML (10ML CUP) PO SCH ×2 (08:56→21:00)
[2019-01-14] MEDS: COLLAGENASE 5 GM (UD JAR) TOP SCH (08:57)
[2019-01-14] MEDS: ENOXAPARIN 30 MG/0.3 ML SYG SC SCH (09:06)
--- NOTE | 2019-01-14 09:06 | PN ---
DATE: 01/14/2019 SUBJECTIVE: The patient is stable. No events overnight. The patient had no other acute events note d. No fevers, chills, nausea, or vomiting. OBJECTIVE: VITAL SIGNS: Blood pressure is 105/54, respirations 18, pulse 60, temperature 97.8. HEENT: Head is normocephalic. NECK: Supple. HEART: Regular rate. LUNGS: Show diminished breath sounds at the base. ABDOMEN: Soft, nontender to palpation without rebound or guarding. EXTREMITIES: Negative for clubbing, cyanosis, no edema. DERMATOLOGIC: No rashes. MUSCULOSKELETAL: No joint effusion. NEUROLOGIC: No change in exam. MEDICATIONS: Reviewed. LABORATORY DATA: Reviewed. ASSESSMENT AND PLAN: 1. Acute encephalopathy and dementia, etiology is toxic metabolic. Continue to monitor. 2. Anemia with evidence of iron deficiency. The patient was started on IV iron. We will continue t o monitor hemoglobin and hematocrit levels. 3. Severe malnutrition and weight loss. Etiology may be secondary to poor p.o. intake according to patient's son; however, an underlying malignancy is a consideration. A CT scan did show evidence of nodules. Other malignancy workup including PSA was within normal limits. The patient's son also sta darline that outpatient colonoscopy is pending. 4. Pulmonary nodule. CT scan was reviewed. Pulmonary consult was placed. Continue to monitor. 5. Sepsis secondary to pneumonia. The patient is completing antibiotic course. 6. Moderate right pleural effusion, left pleural effusion, possibly due to pneumonia. We will follo w up with pulmonary. Consider thoracentesis. 7. Arrhythmia. Continue to monitor. 8. Constipation. Continue Colace. 9. Insomnia. Continue melatonin. 10. Gastrointestinal and deep vein thrombosis prophylaxis. 11. Status post acute kidney injury. Dictated By: GELY KIMBLE DO NR/NTS Conf#: [id number] DID#: [id number] CC: PRIMITIVO WHITEHEAD MD; MICHELLE LUTHER PHD; GELY KIMBLE DO;*EndCC*
--- NOTE | 2019-01-14 13:12 | PN ---
Date/Time of Note Date/Time of Note DATE: 01/14/19 TIME: 13:12 Objective Vital Signs Date Temp Pulse Resp B/P (MAP) Pulse Ox O2 O2 Flow FiO2 Time Delivery Rate 01/14/19 97.9 60 20 118/58 99 Room Air 07:30 (78) Intake and Output 01/13/19 01/13/19 01/14/19 1515:00 23:00 07:00 IntakeIntake Total 100 ml 1200 ml OutputOutput Total 401 ml BalanceBalance 100 ml 799 ml Exam INTERDISCIPLINARY TEAM CONFERENCE Physical Exam: Pulm-cta Abd-soft BOWEL- Cont/incont BLADDER-Cont/incont SKIN- multiple sites -gradually improving OT- DRESSING- mod/max BATHING-mod/max TOILETING-max PT- BED MOBILITY-mod TRANSFERS-mod/max AMBULATION-min 20 feet SPEECH- COGNITION- max Dysphagia- soft diet A/P- Interdisciplinary team conference held today. Please see interdisciplinary sheet. Working toward d.c. on 01/26 with post discharge follow up of physical therapy, occupational therapy, and nursing Results/Medications Result Diagram: 01/13/19 0703 01/13/19 0703 Medications Current Medications Acetaminophen (Tylenol Tab) 650 mg Q6H PRN PO MILD PAIN(1-3)OR ELEVATED TEMP; Start 01/08/19 at 16:30 Aluminum Hydroxide (Aluminum Hydroxide) 30 ml Q6H PRN PO GASTROINTESTINAL UPSET; Start 01/08/19 at 16:30 Lactobacillus Acidophilus/ Rhamnosus (Culturelle) 1 cap BID PO Last administered on 01/14/19at 08:56; Admin Dose 1 CAP; Start 01/08/19 at 21:00 Ondansetron HCl (Zofran Inj) 4 mg Q6H PRN IV NAUSEA AND/OR VOMITING; Start 01/08/19 at 16:30 Senna (Senokot) 1 tab HS PO Last administered on 01/13/19at 20:48; Admin Dose 1 TAB; Start 01/08/19 at 21:00 Magnesium Hydroxide (Milk Of Mag) 30 ml BID PRN PO CONSTIPATION; Start 01/08/19 at 16:30 Lactulose (Enulose) 20 gm DAILY PRN PO CONSTIPATION; Start 01/08/19 at 16:30 Bisacodyl (Dulcolax Supp) 10 mg DAILY PRN [place] CONSTIPATION; Start 01/08/19 at 16:30 Docusate Sodium (Colace Liquid Cup) 100 mg BID PO Last administered on 01/14/19 08:56; Admin Dose 100 MG; Start 01/09/19 at 09:00 Enoxaparin Sodium (Lovenox) 30 mg DAILY SC Last administered on 01/14/19 09:06; Admin Dose 30 MG; Start 01/09/19 at 10:00 Famotidine (Pepcid) 20 mg BID PO Last administered on 01/14/19 08:56; Admin Dose 20 MG; Start 01/09/19 at 10:00 Melatonin (Melatonin) 5 mg HS PRN PO SLEEP; Start 01/09/19 at 10:30 Multivitamins Therapeutic (Theragran) 1 tab DAILY PO Last administered on 08:56; Admin Dose 1 TAB; Start 01/09/19 at 12:00 Folic Acid (Folic Acid) 1 mg DAILY PO Last administered on 01/14/19 08:56; Admin Dose 1 MG; Start 01/09/19 at 12:00 Ascorbic Acid (Vitamin C) 500 mg DAILY PO Last administered on 01/14/19 08:56; Admin Dose 500 MG; Start 01/09/19 at 12:00 Collagenase (Santyl) 1 applic DAILY TOP Last administered on 01/14/19 08:57; Admin Dose 1 APPLIC; Start 01/12/19 at 09:30 Ferric Sodium Gluconate Complex 125 mg/Sodium Chloride 110 ml @ 110 mls/hr ERVIN Y@1300 IVPB Last administered on 01/13/19 12:31; Admin Dose 110 MLS/HR; Start 01/13/19 at 13:00; Stop 01/17/19 at 13:59 PRIMITIVO WHITEHEAD MD Jan 14, 2019 13:12
[2019-01-14] MEDS: SOD FERRIC GLUC COMPLX 125 MG in SOD CHLORIDE 0.9% 100 ML IVPB SCH (13:28)
--- NOTE | 2019-01-14 16:22 | CONS ---
DATE OF ADMISSION: 01/08/2019 DATE OF CONSULTATION: REASON FOR CONSULTATION: Abnormal chest CT. HISTORY OF PRESENT ILLNESS: This is an unfortunate 83-year-old gentleman with multiple medical probl ems including dementia, recent mechanical fall, pneumonia, hyponatremia, likely underlying chronic ob structive pulmonary disease, found to have right lung nodule with possible underlying infectious proc ess. The patient is a poor historian, unable to give me further details. Continues physical therapy rehabilitation unit. PAST MEDICAL HISTORY: As above. MEDICATIONS: Per chart. ALLERGIES: NONE. SOCIAL HISTORY: Ex-smoker, no alcohol, no history of drug use. FAMILY HISTORY: Noncontributory. SYSTEMS REVIEW: A 12-point review of systems was negative other than mentioned above. PHYSICAL EXAMINATION: GENERAL: Chronically ill appearing gentleman, appears comfortable at rest, no acute distress. VITAL SIGNS: Temperature 98, pulse is 60, blood pressure 118/58, O2 saturation 99% on room air. NECK: Supple. No JVD or lymphadenopathy. CARDIAC: S1, S2, no added sounds or murmurs. CHEST: Diminished air entry bilaterally. ABDOMEN: Soft, nontender. No guarding or rebound. EXTREMITIES: No cyanosis or clubbing. No edema. NEUROLOGIC: Generalized weakness. LABORATORIES: White count 5.3, hemoglobin 10.4, platelets 261. BUN 22, creatinine 1.02. Chest CT p erformed several days ago shows centrilobular micronodules, moderate right pleural effusion with atel ectasis, right lung consolidation, bronchiectasis, nonspecific 8 mm nodule right upper lobe. IMPRESSION: 1. Recent community-acquired pneumonia. 2. Right pleural effusion. 3. Right lung nodule, unsure whether this is inflammatory or malignant process. PLAN: 1. The patient will require 1 PT. 2. Aspiration precautions. 3. We will consider thoracentesis with cytology. 4. Outpatient repeat CT scan to follow up pulmonary nodule. Dictated By: HERMINIO HUTCHINSON MD SV/EUGENE Conf#: [id number] DID#: [id number] CC: MICHELLE LUTHER PHD; PRIMITIVO WHITEHEAD MD; GELY KIMBLE DO;*EndCC*
--- NOTE | 2019-01-14 18:45 | CONS ---
DATE OF ADMISSION: 01/08/2019 DATE OF CONSULTATION: 01/14/2019 TYPE OF CONSULTATION: Psychological. REFERRING PHYSICIAN: Primitivo Pavon MD. CONSULTING PSYCHOLOGIST: Michelle Cobos, PHD. REASON FOR CONSULTATION: This consultation was requested by Dr. Krzysztof Pavon in order to evaluate t he cognitive and emotional functioning of this patient related to his present medical condition. HISTORY OF PRESENT ILLNESS: The patient is an 83-year-old male. He has a past history of dementia. The patient was sent to [facility] initially after suffering a fall. The patient was not ed to be septic secondary to pneumonia besides having a fall. The patient was worked up and eventual ly cleared medically and sent over to [facility] acute rehabilitation unit for acut e multidisciplinary rehabilitation. The patient was motivated to get better and does, but is very co nfused. FAMILY AND SOCIAL HISTORY: The patient lives with family. The patient does want to return there aft er discharge. MEDICATIONS: The patient is currently not on any psychotropic medications. SUBSTANCE USE: The patient denies any use of alcohol or other drugs. The patient reports he does no t smoke. MENTAL STATUS EXAMINATION: APPEARANCE: The patient was seen in bed. He appears to be of average height and thin. The patient states that he is left-handed. The patient is confused and he may not be accurate with that statemen t. BEHAVIOR: The patient was cooperative during the consultation. The patient did attempt to answer al l questions presented to him by the interviewer. MOOD AND AFFECT: The patient's mood appears to be just slightly depressed. Affect does appear to be slightly anxious. PERCEPTION: The patient reports no hallucinations or delusions. The patient was alert to person onl y, not to place, situation and time. MEMORY AND COGNITION: The patient's memory and cognition appear to be impaired. He did have a diffi culty remember recent and remote events. The patient did remember that he fell. The patient did rem ember his own address. The patient did not remember what city he lives in. The patient was unable t o name the hospital. The patient was unable to even state his age. The patient stated that he was b orn in 1952, when in actuality was born in 1935. Overall, the patient's cognition at the present keri e remains confused. INTELLIGENCE: Intelligence appears to fall in the average range when he was functioning adequately. INSIGHT: Poor. JUDGMENT: Poor. THOUGHT CONTENT: The patient is concerned about his present medical condition. The patient is frust rated about his fall and does want to recover and return home. DISCUSSION: There is a possibility the patient could benefit from some cognitive/behavioral psychoth erapy while he is on the unit. This psychotherapy would focus on his underlying confusion related to his present medical conditions. 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 F03.90, unspecified dementia without behavioral disturbance. Thank you very much, Dr. Krzysztof Pavon, for referring this individual. Please do not hesitate to corwin oro if you have additional questions. Dictated By: MICHELLE COBOS PHD RK/EUGENE Conf#: [id number] DID#: [id number] CC: PRIMITIVO PAVON MD; GELY IKMBLE DO;*EndCC*
[2019-01-14 19:37] VITALS: BP 132/62; RESP 18
[2019-01-14] MEDS: SENNA TAB PO SCH (21:00)
[2019-01-15 02:00] VITALS: BP 127/58; PULSE 67; RESP 18
[2019-01-15 07:00] VITALS: BP 98/35; PULSE 57; RESP 18
[2019-01-15] MEDS: DOCUSATE SODIUM 10 MG/ML (10ML CUP) PO SCH ×2 (07:55→21:00)
[2019-01-15 08:31] VITALS: BP 95/49; PULSE 66; RESP 18
[2019-01-15] MEDS: LACTOBACILLUS RHAMNOSUS CAP PO SCH ×2 (08:36→20:45)
[2019-01-15] MEDS: MULTIVITAMINS THERAPEUTIC TAB PO SCH (08:36)
[2019-01-15] MEDS: FOLIC ACID 1 MG TAB PO SCH (08:36)
[2019-01-15] MEDS: FAMOTIDINE 20 MG TAB PO SCH ×2 (08:36→20:45)
[2019-01-15] MEDS: ASCORBIC ACID 500 MG TAB PO SCH (08:36)
[2019-01-15] MEDS: ENOXAPARIN 30 MG/0.3 ML SYG SC SCH (08:37)
[2019-01-15] MEDS: COLLAGENASE 5 GM (UD JAR) TOP SCH (08:38)
--- NOTE | 2019-01-15 08:52 | PN ---
DATE: 01/15/2019 SUBJECTIVE: The patient is stable, no events overnight. No fevers, chills, nausea, or vomiting. OBJECTIVE: VITAL SIGNS: Blood pressure is 127/58, respirations 18, pulse 67, temperature 98.0. HEENT: Head is normocephalic. NECK: Supple. HEART: Regular rate. LUNGS: Show diminished breath sounds at the base. ABDOMEN: Soft, nontender to palpation. No rebound or guarding. EXTREMITIES: Negative for clubbing, cyanosis, no edema. DERMATOLOGIC: No rashes. MUSCULOSKELETAL: No joint effusion. NEUROLOGIC: No change in exam. MEDICATIONS: Reviewed. LABORATORY DATA: Shows white count 5.3, hemoglobin 9.3, platelet count 220. Sodium 140, potassium 4 .2, BUN 35, creatinine 0.80. ASSESSMENT AND PLAN: 1. Acute encephalopathy on top of dementia. Etiology is toxic metabolic. Continue to monitor. 2. Anemia with iron deficiency. The patient is on IV iron, continue to monitor hemoglobin and hemat ocrit levels. 3. Malnutrition, weight loss, etiology may be secondary to poor p.o. intake. However, a malignancy workup is necessary. The patient is pending outpatient colonoscopy. PCI levels within normal limits . The patient has a lung nodule. Repeat scan will be done in 2 to 3 months. 4. Pulmonary nodule. The patient is seen by motion study engineer. Appreciate help with management. Plan is for outpatient CT scan. 5. Sepsis secondary to pneumonia. The patient is completing antibiotic course. 6. Right pleural effusion. Continue to monitor. 7. Arrhythmia. Continue to monitor. 8. Constipation. Continue Colace. 9. Insomnia. Continue melatonin. 10. Gastrointestinal and deep vein thrombosis prophylaxis. Dictated By: GELY KIMBLE DO NR/NTS Conf#: [id number] DID#: [id number] CC: GELY KIMBLE DO; MICHELLE LUTHER PHD; PRIMITIVO WHITEHEAD MD;*EndCC*
--- NOTE | 2019-01-15 12:41 | PN ---
Date/Time of Note Date/Time of Note DATE: 01/15/19 TIME: 12:39 Subjective Good appetite Objective Vital Signs Date Temp Pulse Resp B/P (MAP) Pulse Ox O2 O2 Flow FiO2 Time Delivery Rate 01/15/19 66 18 95/49 (64) 98 Room Air 08:31 01/15/19 97.7 07:00 Intake and Output 01/14/19 01/14/19 01/15/19 1515:00 23:00 07:00 IntakeIntake Total 600 ml 1600 ml 1740 ml OutputOutput Total 460 ml BalanceBalance 600 ml 1140 ml 1740 ml Exam pulm-cta mod transfer max ambulation Results/Medications Result Diagram: 01/15/19 0606 01/15/19 0606 Results 24 hrs Laboratory Tests Test 01/15/19 06:06 White Blood Count 5.3 Red Blood Count 2.92 L Hemoglobin 9.3 L Hematocrit 29.1 L Mean Corpuscular Volume 99.7 Mean Corpuscular Hemoglobin 31.8 Mean Corpuscular Hemoglobin Concent 32.0 Red Cell Distribution Width 17.1 H Platelet Count 220 Mean Platelet Volume 11.0 H Immature Granulocytes % 0.400 Neutrophils % 47.2 Lymphocytes % 33.2 Monocytes % 12.3 H Eosinophils % 6.1 Basophils % 0.8 Nucleated Red Blood Cells % 0.0 Immature Granulocytes # 0.020 Neutrophils # 2.5 Lymphocytes # 1.8 Monocytes # 0.7 Eosinophils # 0.3 Basophils # 0.0 Nucleated Red Blood Cells # 0.0 Sodium Level 140 Potassium Level 4.2 Chloride Level 104 Carbon Dioxide Level 29 Anion Gap 7 Blood Urea Nitrogen 35 #H Creatinine 0.80 Est Glomerular Filtrat Rate mL/min Glucose Level 77 Calcium Level 8.7 Phosphorus Level 3.4 Magnesium Level 1.8 Medications Current Medications Acetaminophen (Tylenol Tab) 650 mg Q6H PRN PO MILD PAIN(1-3)OR ELEVATED TEMP; Start 01/08/19 at 16:30 Aluminum Hydroxide (Aluminum Hydroxide) 30 ml Q6H PRN PO GASTROINTESTINAL UPSET; Start 01/08/19 at 16:30 Lactobacillus Acidophilus/ Rhamnosus (Culturelle) 1 cap BID PO Last administered on 01/15/19at 08:36; Admin Dose 1 CAP; Start 01/08/19 at 21:00 Ondansetron HCl (Zofran Inj) 4 mg Q6H PRN IV NAUSEA AND/OR VOMITING; Start 01/08/19 at 16:30 Senna (Senokot) 1 tab HS PO Last administered on 01/13/19at 20:48; Admin Dose 1 TAB; Start 01/08/19 at 21:00 Magnesium Hydroxide (Milk Of Mag) 30 ml BID PRN PO CONSTIPATION; Start 01/08/19 at 16:30 Lactulose (Enulose) 20 gm DAILY PRN PO CONSTIPATION; Start 01/08/19 at 16:30 Bisacodyl (Dulcolax Supp) 10 mg DAILY PRN [place] CONSTIPATION; Start 01/08/19 at 16:30 Docusate Sodium (Colace Liquid Cup) 100 mg BID PO Last administered on 01/14/19 08:56; Admin Dose 100 MG; Start 01/09/19 at 09:00 Enoxaparin Sodium (Lovenox) 30 mg DAILY SC Last administered on 01/15/19 08:37; Admin Dose 30 MG; Start 01/09/19 at 10:00 Famotidine (Pepcid) 20 mg BID PO Last administered on 01/15/19 08:36; Admin Dose 20 MG; Start 01/09/19 at 10:00 Melatonin (Melatonin) 5 mg HS PRN PO SLEEP; Start 01/09/19 at 10:30 Multivitamins Therapeutic (Theragran) 1 tab DAILY PO Last administered on 01/15/19 08:36; Admin Dose 1 TAB; Start 01/09/19 at 12:00 Folic Acid (Folic Acid) 1 mg DAILY PO Last administered on 01/15/19 08:36; Admin Dose 1 MG; Start 01/09/19 at 12:00 Ascorbic Acid (Vitamin C) 500 mg DAILY PO Last administered on 01/15/19 08:36; Admin Dose 500 MG; Start 01/09/19 at 12:00 Collagenase (Santyl) 1 applic DAILY TOP Last administered on 01/15/19 08:38; Admin Dose 1 APPLIC; Start 01/12/19 at 09:30 Ferric Sodium Gluconate Complex 125 mg/Sodium Chloride 110 ml @ 110 mls/hr DAILY@1300 IVPB Last administered on 01/14/19 13:28; Admin Dose 110 MLS/HR; Start 01/13/19 at 13:00; Stop 01/17/19 at 13:59 Assessment/Plan Additional Assessment/Plan Rehab- Toxic metabolic encephalopathy superimposed on mild dementia; Debility Continue treatment plan Integ- continue wound care, off loading. Status post sepsis. Status post pneumonia. Acute kidney injury. Status post non-ST elevation [place]. Right pulmonary nodule- f/b pulm Malnutrition- improving PO intake Dysphagia-speech PRIMITIVO WHITEHEAD MD Jan 15, 2019 12:41
[2019-01-15] MEDS: SOD FERRIC GLUC COMPLX 125 MG in SOD CHLORIDE 0.9% 100 ML IVPB SCH (13:21)
[2019-01-15 14:00] VITALS: BP 114/55; PULSE 69; RESP 18
[2019-01-15 19:50] VITALS: BP 101/54; PULSE 70; RESP 20
[2019-01-15] MEDS: SENNA TAB PO SCH (21:00)
[2019-01-16 03:20] VITALS: BP 107/50; PULSE 100; RESP 19
[2019-01-16 07:00] VITALS: BP 128/55; PULSE 46; RESP 18
[2019-01-16] MEDS: COLLAGENASE 5 GM (UD JAR) TOP SCH (08:22)
[2019-01-16] MEDS: FAMOTIDINE 20 MG TAB PO SCH ×2 (08:23→20:21)
[2019-01-16] MEDS: LACTOBACILLUS RHAMNOSUS CAP PO SCH ×2 (08:23→20:21)
[2019-01-16] MEDS: MULTIVITAMINS THERAPEUTIC TAB PO SCH (08:23)
[2019-01-16] MEDS: ASCORBIC ACID 500 MG TAB PO SCH (08:23)
[2019-01-16] MEDS: FOLIC ACID 1 MG TAB PO SCH (08:23)
[2019-01-16] MEDS: ENOXAPARIN 30 MG/0.3 ML SYG SC SCH (08:24)
[2019-01-16] MEDS: DOCUSATE SODIUM 10 MG/ML (10ML CUP) PO SCH ×2 (08:26→20:44)
--- NOTE | 2019-01-16 11:00 | PN ---
Date/Time of Note Date/Time of Note DATE: 01/16/19 TIME: 10:58 Subjective No new complaints Objective Vital Signs Date Temp Pulse Resp B/P (MAP) Pulse Ox O2 O2 Flow FiO2 Time Delivery Rate 01/16/19 97.7 46 18 128/55 100 Room Air 07:00 (79) Intake and Output 01/15/19 01/15/19 01/16/19 1515:00 23:00 07:00 IntakeIntake Total 3500 ml OutputOutput Total 1401 ml 200 ml BalanceBalance 2099 ml -200 ml Exam pulm-cta bd-soft mod assist transfers Results/Medications Result Diagram: 01/15/19 0601/15/19 0606 Medications Current Medications Acetaminophen (Tylenol Tab) 650 mg Q6H PRN PO MILD PAIN(1-3)OR ELEVATED TEMP; Start 01/08/19 at 16:30 Aluminum Hydroxide (Aluminum Hydroxide) 30 ml Q6H PRN PO GASTROINTESTINAL UPSET; Start 01/08/19 at 16:30 Lactobacillus Acidophilus/ Rhamnosus (Culturelle) 1 cap BID PO Last administered on 01/16/19at 08:23; Admin Dose 1 CAP; Start 01/08/19 at 21:00 Ondansetron HCl (Zofran Inj) 4 mg Q6H PRN IV NAUSEA AND/OR VOMITING; Start 01/08/19 at 16:30 Senna (Senokot) 1 tab HS PO Last administered on 01/13/19at 20:48; Admin Dose 1 TAB; Start 01/08/19 at 21:00 Magnesium Hydroxide (Milk Of Mag) 30 ml BID PRN PO CONSTIPATION; Start 01/08/19 at 16:30 Lactulose (Enulose) 20 gm DAILY PRN PO CONSTIPATION; Start 01/08/19 at 16:30 Bisacodyl (Dulcolax Supp) 10 mg DAILY PRN [place] CONSTIPATION; Start 01/08/19 at 16:30 Docusate Sodium (Colace Liquid Cup) 100 mg BID PO Last administered on 01/14/19at 08:56; Admin Dose 100 MG; Start 01/09/19 at 09:00 Enoxaparin Sodium (Lovenox) 30 mg DAILY SC Last administered on 01/16/19at 08:24; Admin Dose 30 MG; Start 01/09/19 at 10:00 Famotidine (Pepcid) 20 mg BID PO Last administered on 01/16/19 08:23; Admin Dose 20 MG; Start 01/09/19 at 10:00 Melatonin (Melatonin) 5 mg HS PRN PO SLEEP; Start 01/09/19 at 10:30 Multivitamins Therapeutic (Theragran) 1 tab DAILY PO Last administered on 01/16/19 08:23; Admin Dose 1 TAB; Start 01/09/19 at 12:00 Folic Acid (Folic Acid) 1 mg DAILY PO Last administered on 01/16/19 08:23; Admin Dose 1 MG; Start 01/09/19 at 12:00 Ascorbic Acid (Vitamin C) 500 mg DAILY PO Last administered on 01/16/19 08:23; Admin Dose 500 MG; Start 01/09/19 at 12:00 Collagenase (Santyl) 1 applic DAILY TOP Last administered on 01/16/19 08:22; Admin Dose 1 APPLIC; Start 01/12/19 at 09:30 Ferric Sodium Gluconate Complex 125 mg/Sodium Chloride 110 ml @ 110 mls/hr DAILY@1300 IVPB Last administered on 01/15/19 13:21; Admin Dose 110 MLS/HR; Start 01/13/19 at 13:00; Stop 01/17/19 at 13:59 Assessment/Plan Additional Assessment/Plan Rehab- Toxic metabolic encephalopathy superimposed on mild dementia; Debility Continue treatment plan. Patient's activity tolerance has been improving Integ- continue wound care, off loading. All wound have been improving with current measures Status post sepsis. Status post pneumonia. Acute kidney injury. Status post non-ST elevation [place]. Right pulmonary nodule- f/b pulm Malnutrition- improving PO intake Dysphagia-speech PRIMITIVO WHITEHEAD MD Jan 16, 2019 11:00
--- NOTE | 2019-01-16 12:12 | PN ---
DATE: 01/16/2019 SUBJECTIVE: The patient is stable. No events overnight. OBJECTIVE: VITAL SIGNS: Blood pressure is 114/55, pulse 100, respirations 20, temperature 97.9. HEENT: Head is normocephalic. NECK: Supple. HEART: Regular rate. LUNGS: Show diminished breath sounds at the base. ABDOMEN: Soft, nontender to palpation. No rebound or guarding. EXTREMITIES: Negative for clubbing, cyanosis. No edema. DERMATOLOGIC: No rashes. MUSCULOSKELETAL: No joint effusion. NEUROLOGIC: No change in exam. MEDICATIONS: Have been reviewed. LABORATORY DATA: Have been reviewed. ASSESSMENT AND PLAN: 1. Acute encephalopathy on top of dementia. Etiology is toxic metabolic. Continue to monitor. 2. Anemia with iron deficiency. The patient is completing course of IV iron. 3. Malnutrition and weight loss. Etiology may be secondary to poor oral intake. However, malignanc y workup is necessary. Outpatient colonoscopy is pending. PSA levels are within normal limits. The patient has lung nodule. Repeat CT scan in 2 to 3 months. 4. Pulmonary nodule. The patient was seen by electric motor rebuilder. I appreciate help with management. Co alessia to monitor. Follow up with outpatient CT scan. 5. Sepsis secondary to pneumonia. The patient is completing antibiotic course. 6. Right pleural effusion. Continue to monitor. 7. Arrhythmia. Continue to monitor. 8. Constipation. Continue Colace. 9. Insomnia. Continue melatonin. 10. Gastrointestinal and deep venous thrombosis prophylaxis. Dictated By: GELY KIMBLE DO NR/NTS Conf#: [id number] DID#: [id number] CC: MICHELLE LUTHER PHD; PRIMITIVO WHITEHEAD MD;*EndCC*
[2019-01-16] MEDS: SOD FERRIC GLUC COMPLX 125 MG in SOD CHLORIDE 0.9% 100 ML IVPB SCH (13:06)
[2019-01-16 14:00] VITALS: BP 122/59; PULSE 75; RESP 18
[2019-01-16 20:21] VITALS: BP 118/58; PULSE 73; RESP 18
[2019-01-16] MEDS: SENNA TAB PO SCH (20:44)
[2019-01-17 02:00] VITALS: BP 123/58; PULSE 50; RESP 18
[2019-01-17 07:00] VITALS: BP 122/51; PULSE 53; RESP 17
--- NOTE | 2019-01-17 07:36 | PN ---
Date/Time of Note Date/Time of Note DATE: 01/17/19 TIME: 07:35 Subjective AWAKE ALERT NO C/O Objective Vital Signs Date Temp Pulse Resp B/P (MAP) Pulse Ox O2 O2 Flow FiO2 Time Delivery Rate 01/17/19 97.2 50 18 123/58 100 Room Air 02:00 (79) Intake and Output 01/16/19 01/16/19 01/17/19 1515:00 23:00 07:00 IntakeIntake Total 110 ml 1880 ml 700 ml OutputOutput Total 600 ml 400 ml BalanceBalance 110 ml 1280 ml 300 ml Exam LUNGS CTA COR RRR FAIR MOTOR CLOF XT MODA Results/Medications Result Diagram: 01/17/19 0631 01/15/19 0606 Results 24 hrs Laboratory Tests Test 01/17/19 06:31 White Blood Count 8.6 # Red Blood Count 3.33 L Hemoglobin 10.6 L Hematocrit 33.9 L Mean Corpuscular Volume 101.8 H Mean Corpuscular Hemoglobin 31.8 Mean Corpuscular Hemoglobin Concent 31.3 L Red Cell Distribution Width 17.7 H Platelet Count 172 # Mean Platelet Volume 11.8 H Immature Granulocytes % 0.100 Neutrophils % 67.9 Lymphocytes % 18.9 Monocytes % 8.2 Eosinophils % 4.3 Basophils % 0.6 Nucleated Red Blood Cells % 0.0 Immature Granulocytes # 0.010 Neutrophils # 5.8 Lymphocytes # 1.6 Monocytes # 0.7 Eosinophils # 0.4 Basophils # 0.1 Nucleated Red Blood Cells # 0.0 Medications Current Medications Acetaminophen (Tylenol Tab) 650 mg Q6H PRN PO MILD PAIN(1-3)OR ELEVATED TEMP; Start 01/08/19 at 16:30 Aluminum Hydroxide (Aluminum Hydroxide) 30 ml Q6H PRN PO GASTROINTESTINAL UPSET; Start 01/08/19 at 16:30 Lactobacillus Acidophilus/ Rhamnosus (Culturelle) 1 cap BID PO Last administered on 01/16/19at 20:21; Admin Dose 1 CAP; Start 01/08/19 at 21:00 Ondansetron HCl (Zofran Inj) 4 mg Q6H PRN IV NAUSEA AND/OR VOMITING; Start 01/08/19 at 16:30 Senna (Senokot) 1 tab HS PO Last administered on 01/13/19at 20:48; Admin Dose 1 TAB; Start 01/08/19 at 21:00 Magnesium Hydroxide (Milk Of Mag) 30 ml BID PRN PO CONSTIPATION; Start 01/08/19 at 16:30 Lactulose (Enulose) 20 gm DAILY PRN PO CONSTIPATION; Start 01/08/19 at 16:30 Bisacodyl (Dulcolax Supp) 10 mg DAILY PRN [place] CONSTIPATION; Start 01/08/19 at 16:30 Docusate Sodium (Colace Liquid Cup) 100 mg BID PO Last administered on 01/14/19 08:56; Admin Dose 100 MG; Start 01/09/19 at 09:00 Enoxaparin Sodium (Lovenox) 30 mg DAILY SC Last administered on 01/16/19 08:24; Admin Dose 30 MG; Start 01/09/19 at 10:00 Famotidine (Pepcid) 20 mg BID PO Last administered on 01/16/19 20:21; Admin Dose 20 MG; Start 01/09/19 at 10:00 Melatonin (Melatonin) 5 mg HS PRN PO SLEEP; Start 01/09/19 at 10:30 Multivitamins Therapeutic (Theragran) 1 tab DAILY PO Last administered on 01/16/19 08:23; Admin Dose 1 TAB; Start 01/09/19 at 12:00 Folic Acid (Folic Acid) 1 mg DAILY PO Last administered on 01/16/19 08:23; Admin Dose 1 MG; Start 01/09/19 at 12:00 Ascorbic Acid (Vitamin C) 500 mg DAILY PO Last administered on 01/16/19 08:23; Admin Dose 500 MG; Start 01/09/19 at 12:00 Collagenase (Santyl) 1 applic DAILY TOP Last administered on 01/16/19 08:22; Admin Dose 1 APPLIC; Start 01/12/19 at 09:30 Ferric Sodium Gluconate Complex 125 mg/Sodium Chloride 110 ml @ 110 mls/hr DAILY@1300 IVPB Last administered on 01/16/19 13:06; Admin Dose 110 MLS/HR; Start 01/13/19 at 13:00; Stop 01/17/19 at 13:59 Assessment/Plan Additional Assessment/Plan Rehab- Toxic metabolic encephalopathy superimposed on mild dementia; Debility Continue treatment plan. Patient's activity tolerance has been improving Integ- continue wound care, off loading. All wound have been improving with current measures Status post sepsis. Status post pneumonia. Acute kidney injury. Status post non-ST elevation [place]. Right pulmonary nodule- f/b pulm Malnutrition- improving PO intake Dysphagia-speech, SWALLOW PRECAUTIONS PRERENAL AZOTEMIA ENCOURAGE PO FLUIDS FIDENCIO WHITEHEAD MD Jan 17, 2019 07:36
[2019-01-17] MEDS: DOCUSATE SODIUM 10 MG/ML (10ML CUP) PO SCH ×2 (09:00→20:28)
[2019-01-17] MEDS: MULTIVITAMINS THERAPEUTIC TAB PO SCH (09:08)
[2019-01-17] MEDS: COLLAGENASE 5 GM (UD JAR) TOP SCH (09:24)
[2019-01-17] MEDS: LACTOBACILLUS RHAMNOSUS CAP PO SCH ×2 (09:25→20:29)
[2019-01-17] MEDS: FOLIC ACID 1 MG TAB PO SCH (09:25)
[2019-01-17] MEDS: ASCORBIC ACID 500 MG TAB PO SCH (09:25)
[2019-01-17] MEDS: FAMOTIDINE 20 MG TAB PO SCH ×2 (09:25→20:29)
[2019-01-17] MEDS: ENOXAPARIN 30 MG/0.3 ML SYG SC SCH (09:33)
--- NOTE | 2019-01-17 11:27 | CONS ---
Consult Date/Type/Reason Admit Date/Time Jan 08, 2019 at 14:50 Initial Consult Date Type of Consult Pulmonary Date/Time of Note DATE: 01/17/19 TIME: 11:26 Subjective Patient remained stable mildly confused continues physical therapy with no respiratory distress. Objective Vital Signs Date Temp Pulse Resp B/P (MAP) Pulse Ox O2 O2 Flow FiO2 Time Delivery Rate 01/17/19 97.6 53 17 122/51 96 Room Air 07:00 (74) Intake and Output 01/16/19 01/16/19 01/17/19 1515:00 23:00 07:00 IntakeIntake Total 110 ml 1880 ml 700 ml OutputOutput Total 600 ml 400 ml BalanceBalance 110 ml 1280 ml 300 ml Exam GENERAL: Frail elderly cachectic gentleman VITAL SIGNS: per chart NECK: Supple. No JVD or lymphadenopathy. CARDIAC EXAM: S1, S2. No added sounds or murmurs. CHEST: clear bilaterally, No added sounds, rales or wheezes ABDOMEN: Soft, nontender. No guarding or rebound. EXTREMITIES: No cyanosis, clubbing or edema. NEUROLOGIC: Generalized weakness. No focal deficits. Results/Medications Result Diagram: 01/17/19 0631 01/17/19 0631 Results 24 hrs Laboratory Tests Test 01/17/19 06:31 White Blood Count 8.6 # Red Blood Count 3.33 L Hemoglobin 10.6 L Hematocrit 33.9 L Mean Corpuscular Volume 101.8 H Mean Corpuscular Hemoglobin 31.8 Mean Corpuscular Hemoglobin Concent 31.3 L Red Cell Distribution Width 17.7 H Platelet Count 172 # Mean Platelet Volume 11.8 H Immature Granulocytes % 0.100 Neutrophils % 67.9 Lymphocytes % 18.9 Monocytes % 8.2 Eosinophils % 4.3 Basophils % 0.6 Nucleated Red Blood Cells % 0.0 Immature Granulocytes # 0.010 Neutrophils # 5.8 Lymphocytes # 1.6 Monocytes # 0.7 Eosinophils # 0.4 Basophils # 0.1 Nucleated Red Blood Cells # 0.0 Sodium Level 141 Potassium Level 5.0 Chloride Level 107 Carbon Dioxide Level 26 Anion Gap 8 Blood Urea Nitrogen 27 H Creatinine 0.78 Est Glomerular Filtrat Rate mL/min Glucose Level 75 Calcium Level 9.4 Phosphorus Level 3.7 Magnesium Level 2.1 Medications Current Medications Acetaminophen (Tylenol Tab) 650 mg Q6H PRN PO MILD PAIN(1-3)OR ELEVATED TEMP; Start 01/08/19 at 16:30 Aluminum Hydroxide (Aluminum Hydroxide) 30 ml Q6H PRN PO GASTROINTESTINAL UPSET; Start 01/08/19 at 16:30 Lactobacillus Acidophilus/ Rhamnosus (Culturelle) 1 cap BID PO Last administered on 01/17/19 09:25; Admin Dose 1 CAP; Start 01/08/19 at 21:00 Ondansetron HCl (Zofran Inj) 4 mg Q6H PRN IV NAUSEA AND/OR VOMITING; Start 01/08/19 at 16:30 Senna (Senokot) 1 tab HS PO Last administered on 01/13/19 20:48; Admin Dose 1 TAB; Start 01/08/19 at 21:00 Magnesium Hydroxide (Milk Of Mag) 30 ml BID PRN PO CONSTIPATION; Start 01/08/19 at 16:30 Lactulose (Enulose) 20 gm DAILY PRN PO CONSTIPATION; Start 01/08/19 at 16:30 Bisacodyl (Dulcolax Supp) 10 mg DAILY PRN [place] CONSTIPATION; Start 01/08/19 at 16:30 Docusate Sodium (Colace Liquid Cup) 100 mg BID PO Last administered on 01/14/19 08:56; Admin Dose 100 MG; Start 01/09/19 at 09:00 Enoxaparin Sodium (Lovenox) 30 mg DAILY SC Last administered on 01/17/19 09:33 ; Admin Dose 30 MG; Start 01/09/19 at 10:00 Famotidine (Pepcid) 20 mg BID PO Last administered on 01/17/19 09:25; Admin Dose 20 MG; Start 01/09/19 at 10:00 Melatonin (Melatonin) 5 mg HS PRN PO SLEEP; Start 01/09/19 at 10:30 Multivitamins Therapeutic (Theragran) 1 tab DAILY PO Last administered on 09:08; Admin Dose 1 TAB; Start 01/09/19 at 12:00 Folic Acid (Folic Acid) 1 mg DAILY PO Last administered on 01/17/19 09:25; Admin Dose 1 MG; Start 01/09/19 at 12:00 Ascorbic Acid (Vitamin C) 500 mg DAILY PO Last administered on 01/17/19 09:25; Admin Dose 500 MG; Start 01/09/19 at 12:00 Collagenase (Santyl) 1 applic DAILY TOP Last administered on 01/17/19at 09:24; Admin Dose 1 APPLIC; Start 01/12/19 at 09:30 Ferric Sodium Gluconate Complex 125 mg/Sodium Chloride 110 ml @ 110 mls/hr VICKI LY@1300 IVPB Last administered on 01/16/19at 13:06; Admin Dose 110 MLS/HR; Start 01/13/19 at 13:00; Stop 01/17/19 at 13:59 Assessment/Plan Hospital Course (Demo Recall) . IMPRESSION: 1. Recent community-acquired pneumonia. 2. Right pleural effusion. 3. Right lung nodule, unsure whether this is inflammatory or malignant process. PLAN: 1. Pleural fluid status post thoracentesis with cytology 2. Aspiration precautions. 3. Outpatient PET scan Given patient's poor functional status unlikely he is a candidate for curative lung surgery. HERMINIO HUTCHINSON MD, [facility] Jan 17, 2019 11:27
[2019-01-17] MEDS: SOD FERRIC GLUC COMPLX 125 MG in SOD CHLORIDE 0.9% 100 ML IVPB SCH (13:22)
[2019-01-17 14:00] VITALS: BP 101/49; PULSE 60; RESP 18
--- NOTE | 2019-01-17 15:22 | PN ---
DATE: 01/17/2019 SUBJECTIVE: The patient is stable. No events overnight. No fevers, chills, nausea, vomiting. OBJECTIVE: VITAL SIGNS: Blood pressure is 123/58, respirations 18, pulse 50, temperature 97.2. HEENT: Head is normocephalic. NECK: Supple. HEART: Regular rate. LUNGS: Show diminished breath sounds at the base. ABDOMEN: Soft, nontender to palpation. No rebound or guarding. EXTREMITIES: Negative for clubbing, cyanosis. No edema. DERMATOLOGIC: No rashes. MUSCULOSKELETAL: No joint effusions. NEUROLOGIC: No change in exam. MEDICATIONS: Reviewed. LABORATORY DATA: From 01/15/2019 was reviewed. ASSESSMENT AND PLAN: 1. Acute encephalopathy on top of dementia. Etiology is toxic-metabolic. Continue to monitor. 2. Anemia with iron deficiency. The patient has completed a course of IV iron. 3. Malnutrition, weight loss. Etiology may be secondary to poor oral intake. However, a malignancy workup is recommended. The patient is pending outpatient colonoscopy. PSA level is within normal l imits. The patient does have a lung nodule that may be reactive due to recent pneumonia. A repeat C T scan is expected in 2 to 3 months. 4. Pulmonary nodule. The patient was seen by integrated program teacher. Will plan for a repeat CT scan in outp atient setting. 5. Status post sepsis secondary to pneumonia. The patient has completed antibiotic course. 6. Right pleural effusion. Continue to monitor. 7. Lower extremity wounds. Continue wound care. 8. Arrhythmia. Continue to monitor. 9. Constipation. Continue Colace. 10. Gastrointestinal and deep vein thrombosis prophylaxis. 11. Azotemia. Etiology may be secondary to poor oral intake, hypercatabolic state. Will continue t o monitor. Repeat a renal panel. Dictated By: GELY KIMBLE DO NR/NTS Conf#: [id number] DID#: [id number] CC: PRIMITIVO WHITEHEAD MD;*EndCC*
[2019-01-17 19:38] VITALS: BP 128/57; PULSE 66; RESP 18
[2019-01-17] MEDS: SENNA TAB PO SCH (20:29)
[2019-01-18 02:00] VITALS: BP 122/58; PULSE 68; RESP 18
[2019-01-18 07:00] VITALS: BP 123/62; PULSE 51; RESP 18
[2019-01-18] MEDS: DOCUSATE SODIUM 10 MG/ML (10ML CUP) PO SCH ×2 (09:00→20:31)
[2019-01-18] MEDS: FAMOTIDINE 20 MG TAB PO SCH ×2 (09:47→20:25)
[2019-01-18] MEDS: FOLIC ACID 1 MG TAB PO SCH (09:48)
[2019-01-18] MEDS: ASCORBIC ACID 500 MG TAB PO SCH (09:48)
[2019-01-18] MEDS: COLLAGENASE 5 GM (UD JAR) TOP SCH (09:48)
[2019-01-18] MEDS: LACTOBACILLUS RHAMNOSUS CAP PO SCH ×2 (09:48→20:25)
[2019-01-18] MEDS: MULTIVITAMINS THERAPEUTIC TAB PO SCH (09:48)
--- NOTE | 2019-01-18 11:50 | PN ---
DATE: 01/18/2019 SUBJECTIVE: The patient is stable. No events overnight. No fevers, chills, nausea, vomiting. OBJECTIVE: VITAL SIGNS: Blood pressure is 128/57, pulse 68, respiration 18, temperature 98.8. HEENT: Head is normocephalic. NECK: Supple. HEART: Regular rate. LUNGS: Show diminished breath sounds at the base. ABDOMEN: Soft, nontender to palpation without rebound or guarding. EXTREMITIES: Negative for clubbing, cyanosis, or edema. DERMATOLOGIC: No rashes. MUSCULOSKELETAL: Positive wounds. NEUROLOGIC: No change in exam. MEDICATIONS: Reviewed. LABORATORY DATA: Has been reviewed. ASSESSMENT AND PLAN: 1. Acute encephalopathy on top of dementia. Etiology is toxic metabolic. Continue to monitor. 2. Anemia with iron deficiency. The patient completing a course of IV iron. 3. Malnutrition, weight loss. The patient is undergoing age appropriate malignancy workup. A lung nodule has been found, possible PET scan to be done in outpatient setting. Appreciate pulmonary's ev aluation. 4. Pulmonary nodule. Follow up with pulmonary recommendations. Possible thoracentesis and/or outpa tient PET scan. 5. Right pleural effusion. Continue to monitor. 6. Status post sepsis secondary to pneumonia. 7. Lower extremity wounds. Continue wound care. 8. Arrhythmia. Continue to monitor. 9. Constipation. Continue Colace. 10. Azotemia. Etiology is likely secondary to poor oral intake. Repeat renal panel shows improveme nt. Continue to monitor. Continue to encourage oral intake. 11. Gastrointestinal and deep vein thrombosis prophylaxis. Dictated By: GELY KIMBLE DO NR/NTS Conf#: [id number] DID#: [id number] CC: PRIMITIVO WHITEHEAD MD;*EndCC*
--- NOTE | 2019-01-18 13:43 | CONS ---
Consult Date/Type/Reason Admit Date/Time Jan 08, 2019 at 14:50 Initial Consult Date Type of Consult Pulmonary Date/Time of Note DATE: 01/18/19 TIME: 13:41 Subjective Clinically no change Objective Vital Signs Date Temp Pulse Resp B/P (MAP) Pulse Ox O2 O2 Flow FiO2 Time Delivery Rate 01/18/19 98.1 51 18 123/62 100 Room Air 07:00 (82) Intake and Output 01/17/19 01/17/19 01/18/19 1515:00 23:00 07:00 IntakeIntake Total 110 ml 900 ml 750 ml BalanceBalance 110 ml 900 ml 750 ml Exam GENERAL: Frail elderly cachectic gentleman VITAL SIGNS: per chart NECK: Supple. No JVD or lymphadenopathy. CARDIAC EXAM: S1, S2. No added sounds or murmurs. CHEST: clear bilaterally, No added sounds, rales or wheezes ABDOMEN: Soft, nontender. No guarding or rebound. EXTREMITIES: No cyanosis, clubbing or edema. NEUROLOGIC: Generalized weakness. No focal deficits. Results/Medications Result Diagram: 01/17/19 1137 01/17/19 0631 Medications Current Medications Acetaminophen (Tylenol Tab) 650 mg Q6H PRN PO MILD PAIN(1-3)OR ELEVATED TEMP; Start 01/08/19 at 16:30 Aluminum Hydroxide (Aluminum Hydroxide) 30 ml Q6H PRN PO GASTROINTESTINAL UPSET; Start 01/08/19 at 16:30 Lactobacillus Acidophilus/ Rhamnosus (Culturelle) 1 cap BID PO Last administered on 01/18/19at 09:48; Admin Dose 1 CAP; Start 01/08/19 at 21:00 Ondansetron HCl (Zofran Inj) 4 mg Q6H PRN IV NAUSEA AND/OR VOMITING; Start 01/08/19 at 16:30 Senna (Senokot) 1 tab HS PO Last administered on 01/13/19at 20:48; Admin Dose 1 TAB; Start 01/08/19 at 21:00 Magnesium Hydroxide (Milk Of Mag) 30 ml BID PRN PO CONSTIPATION; Start 01/08/19 at 16:30 Lactulose (Enulose) 20 gm DAILY PRN PO CONSTIPATION; Start 01/08/19 at 16:30 Bisacodyl (Dulcolax Supp) 10 mg DAILY PRN [place] CONSTIPATION; Start 01/08/19 at 16:30 Docusate Sodium (Colace Liquid Cup) 100 mg BID PO Last administered on 01/14/19 08:56; Admin Dose 100 MG; Start 01/09/19 at 09:00 Famotidine (Pepcid) 20 mg BID PO Last administered on 01/18/19 09:47; Admin Dose 20 MG; Start 01/09/19 at 10:00 Melatonin (Melatonin) 5 mg HS PRN PO SLEEP; Start 01/09/19 at 10:30 Multivitamins Therapeutic (Theragran) 1 tab DAILY PO Last administered on 01/18/19 09:48; Admin Dose 1 TAB; Start 01/09/19 at 12:00 Folic Acid (Folic Acid) 1 mg DAILY PO Last administered on 01/18/19 09:48; Admin Dose 1 MG; Start 01/09/19 at 12:00 Ascorbic Acid (Vitamin C) 500 mg DAILY PO Last administered on 01/18/19 09:48; Admin Dose 500 MG; Start 01/09/19 at 12:00 Collagenase (Santyl) 1 applic DAILY TOP Last administered on 01/18/19 09:48; Admin Dose 1 APPLIC; Start 01/12/19 at 09:30 Assessment/Plan Hospital Course (Demo Recall) . IMPRESSION: 1. Recent community-acquired pneumonia. 2. Right pleural effusion. 3. Right lung nodule, unsure whether this is inflammatory or malignant process. PLAN: 1. Discussed with patients daughter, declined thoracentesis, repeat ct / cxr in few weeks. Conservative approach. 2. Aspiration precautions. 3. Outpatient PET scan Consider dnr code status HERMINIO HUTCHINSON MD, [facility] Jan 18, 2019 13:43
[2019-01-18 14:00] VITALS: BP 133/62; PULSE 65; RESP 18
[2019-01-18 20:00] VITALS: BP 116/65; PULSE 74; RESP 18
[2019-01-18] MEDS: SENNA TAB PO SCH (20:31)
[2019-01-19 07:30] VITALS: BP 139/68; PULSE 65; RESP 18
--- NOTE | 2019-01-19 09:05 | PN ---
DATE: 01/19/2019 FU NOTE/ REHAB CROSS COVER SUBJECTIVE: The patient's family refused a thoracentesis. No other events noted. The patient is otherwise stable. The patient is moderate assist 2 feet with front wheel walker, moderate assist transfer, moderate assist ub dressing, Max assist LB dressing. OBJECTIVE: VITAL SIGNS: Blood pressure is 116/65, respirations 18, pulse 74, temperature 98.0. HEENT: Head is normocephalic. NECK: Supple. HEART: Regular rate. LUNGS: Show diminished breath sounds at the base. ABDOMEN: Soft, nontender to palpation. No rebound or guarding. EXTREMITIES: Negative for clubbing, cyanosis. No edema. DERMATOLOGIC: No rashes. MUSCULOSKELETAL: No joint effusion. NEUROLOGIC: No change in exam. MEDICATIONS: The patient's medications have been reviewed. LABORATORY DATA: From 01/17/2019 was reviewed. ASSESSMENT AND PLAN: 1. Acute encephalopathy on top of dementia. Etiology is toxic-metabolic. Continue to monitor. 2. Anemia with iron deficiency. The patient has completed a course of IV iron. 3. Pulmonary nodule with pleural effusion. The patient's family refused thoracentesis. Continue to monitor. 4. Malnutrition, weight loss. Malignancy workup is ongoing. The patient may require outpatient PET scan. Thoracentesis was refused by patient's family. 5. Lower extremity wounds. Continue wound care. 6. Arrhythmia. Continue to monitor. 7. Constipation. Continue Colace. 8. Azotemia, likely due to decreased oral intake. Continue to monitor. 9. Status post sepsis secondary to pneumonia. 10. Gastrointestinal and deep vein thrombosis prophylaxis. 11. Debility. Continue physical therapy, occupational therapy, continue with daily ambulation. Dictated By: GELY KIMBLE DO NR/NTS Conf#: [id number] DID#: [id number] CC: PRIMITIVO WHITEHEAD MD;*EndCC* MTDD
[2019-01-19] MEDS: FOLIC ACID 1 MG TAB PO SCH (09:20)
[2019-01-19] MEDS: DOCUSATE SODIUM 10 MG/ML (10ML CUP) PO SCH ×2 (09:21→21:00)
[2019-01-19] MEDS: ASCORBIC ACID 500 MG TAB PO SCH (09:21)
[2019-01-19] MEDS: COLLAGENASE 5 GM (UD JAR) TOP SCH (09:21)
[2019-01-19] MEDS: FAMOTIDINE 20 MG TAB PO SCH ×2 (09:21→20:46)
[2019-01-19] MEDS: LACTOBACILLUS RHAMNOSUS CAP PO SCH ×2 (09:21→20:46)
[2019-01-19] MEDS: MULTIVITAMINS THERAPEUTIC TAB PO SCH (09:21)
[2019-01-19 14:00] VITALS: BP 106/59; PULSE 78; RESP 18
[2019-01-19] MEDS ORDERED: VITAMIN A & D 5 GM OINT PACKET TOP PRN (15:00)
[2019-01-19 20:30] VITALS: BP 112/57; PULSE 68; RESP 18
[2019-01-19] MEDS: SENNA TAB PO SCH (21:00)
[2019-01-20 02:00] VITALS: BP 103/62; PULSE 63; RESP 18
[2019-01-20 07:00] VITALS: BP 121/57; PULSE 57; RESP 18
[2019-01-20] MEDS: FOLIC ACID 1 MG TAB PO SCH (08:54)
[2019-01-20] MEDS: FAMOTIDINE 20 MG TAB PO SCH ×2 (08:54→20:32)
[2019-01-20] MEDS: MULTIVITAMINS THERAPEUTIC TAB PO SCH (08:54)
[2019-01-20] MEDS: LACTOBACILLUS RHAMNOSUS CAP PO SCH ×2 (08:54→20:32)
[2019-01-20] MEDS: ASCORBIC ACID 500 MG TAB PO SCH (08:54)
[2019-01-20] MEDS: COLLAGENASE 5 GM (UD JAR) TOP SCH (08:55)
[2019-01-20] MEDS: ENOXAPARIN 30 MG/0.3 ML SYG SC SCH (08:56)
[2019-01-20] MEDS: DOCUSATE SODIUM 10 MG/ML (10ML CUP) PO SCH ×2 (09:00→20:39)
--- NOTE | 2019-01-20 09:04 | PN ---
DATE: 01/20/2019 SUBJECTIVE: The patient is stable, no events overnight. OBJECTIVE: VITAL SIGNS: Blood pressure is 139/68, pulse 78, respirations 18, temperature 98.0. HEENT: Head is normocephalic. NECK: Supple. HEART: Regular rate. LUNGS: Show diminished breath sounds at the base. ABDOMEN: Soft, nontender to palpation. No rebound or guarding. EXTREMITIES: Negative for clubbing, cyanosis, no edema. DERMATOLOGIC: No rashes. MUSCULOSKELETAL: No joint effusion. NEUROLOGIC: No change in exam. MEDICATIONS: Reviewed. LABORATORY DATA: Reviewed. ASSESSMENT AND PLAN: 1. Acute encephalopathy on top of dementia, etiology is toxic metabolic. Continue to monitor. 2. Anemia with iron deficiency. The patient has completed a course of IV iron. 3. Pulmonary nodules, pleural effusion. The patient's family refused thoracentesis. Continue to mo nitor. 4. Malnutrition, weight loss. The patient will have outpatient colonoscopy. An outpatient PET scan for possible malignancy workup. 5. Lower extremity wounds. Continue wound care. 6. Arrhythmia. Continue to monitor. 7. Constipation. Continue Colace. 8. Azotemia, improved. Continue to monitor. 9. Status post sepsis. 10. Debility. Continue physical therapy. 11. Gastrointestinal and deep vein thrombosis prophylaxis. Dictated By: GELY KIMBLE DO NR/EUGENE Conf#: [id number] DID#: [id number] CC: MICHELLE LUTHER PHD; GELY KIMBLE DO; PRIMITIVO WHITEHEAD MD;*EndCC*
--- NOTE | 2019-01-20 13:01 | PN ---
Date/Time of Note Date/Time of Note DATE: 01/20/19 TIME: 12:59 Subjective Patient up for therapies this morning Objective Vital Signs Date Temp Pulse Resp B/P (MAP) Pulse Ox O2 O2 Flow FiO2 Time Delivery Rate 01/20/19 97.8 57 18 121/57 98 Room Air 07:00 (78) Intake and Output 01/19/19 01/19/19 01/20/19 1515:00 23:00 07:00 IntakeIntake Total 1200 ml 300 ml BalanceBalance 1200 ml 300 ml Exam pulm-cta integ- improving sba wc propulsion Results/Medications Result Diagram: 01/19/19 0858 01/17/19 0631 Medications Current Medications Acetaminophen (Tylenol Tab) 650 mg Q6H PRN PO MILD PAIN(1-3)OR ELEVATED TEMP; Start 01/08/19 at 16:30 Aluminum Hydroxide (Aluminum Hydroxide) 30 ml Q6H PRN PO GASTROINTESTINAL UPSET; Start 01/08/19 at 16:30 Lactobacillus Acidophilus/ Rhamnosus (Culturelle) 1 cap BID PO Last administered on 01/20/19at 08:54; Admin Dose 1 CAP; Start 01/08/19 at 21:00 Ondansetron HCl (Zofran Inj) 4 mg Q6H PRN IV NAUSEA AND/OR VOMITING; Start 01/08/19 at 16:30 Senna (Senokot) 1 tab HS PO Last administered on 01/13/19at 20:48; Admin Dose 1 TAB; Start 01/08/19 at 21:00 Magnesium Hydroxide (Milk Of Mag) 30 ml BID PRN PO CONSTIPATION; Start 01/08/19 at 16:30 Lactulose (Enulose) 20 gm DAILY PRN PO CONSTIPATION; Start 01/08/19 at 16:30 Bisacodyl (Dulcolax Supp) 10 mg DAILY PRN [place] CONSTIPATION; Start 01/08/19 at 16:30 Docusate Sodium (Colace Liquid Cup) 100 mg BID PO Last administered on 01/19/19at 09:21; Admin Dose 100 MG; Start 01/09/19 at 09:00 Famotidine (Pepcid) 20 mg BID PO Last administered on 01/20/19at 08:54; Admin Dose 20 MG; Start 01/09/19 at 10:00 Melatonin (Melatonin) 5 mg HS PRN PO SLEEP; Start 01/09/19 at 10:30 Multivitamins Therapeutic (Theragran) 1 tab DAILY PO Last administered on 01/20/19 08:54; Admin Dose 1 TAB; Start 01/09/19 at 12:00 Folic Acid (Folic Acid) 1 mg DAILY PO Last administered on 01/20/19 08:54; Admin Dose 1 MG; Start 01/09/19 at 12:00 Ascorbic Acid (Vitamin C) 500 mg DAILY PO Last administered on 01/20/19 08:54; Admin Dose 500 MG; Start 01/09/19 at 12:00 Collagenase (Santyl) 1 applic DAILY TOP Last administered on 01/20/19 08:55; Admin Dose 1 APPLIC; Start 01/12/19 at 09:30 Enoxaparin Sodium (Lovenox) 30 mg DAILY SC Last administered on 01/20/19 08:56; Admin Dose 30 MG; Start 01/19/19 at 09:00 Vitamin A/Vitamin D (Vitamin A & D Oint) 1 applic BID PRN TOP DRY LIPS; Start 01/19/19 at 15:00 Assessment/Plan Additional Assessment/Plan Rehab- Toxic metabolic encephalopathy superimposed on mild dementia; Debility Patient requires encouragement for activities, but overall improving activity tolerance Integ- continue wound care, off loading, increased p.o. intake Status post sepsis. Status post pneumonia. Acute kidney injury. Status post non-ST elevation [place]. Right pulmonary nodule- f/b pulm Malnutrition- improving PO intake Dysphagia-speech PRIMITIVO WHITEHEAD MD Jan 20, 2019 13:01
[2019-01-20 14:00] VITALS: BP 117/64; PULSE 72; RESP 18
[2019-01-20 20:12] VITALS: BP 118/58; PULSE 73; RESP 18
[2019-01-20] MEDS: SENNA TAB PO SCH (20:39)
[2019-01-21 02:00] VITALS: BP 119/56; PULSE 64; RESP 18
[2019-01-21 08:30] VITALS: BP 137/62; PULSE 60; RESP 18
[2019-01-21] MEDS: FAMOTIDINE 20 MG TAB PO SCH ×2 (08:42→20:48)
[2019-01-21] MEDS: ASCORBIC ACID 500 MG TAB PO SCH (08:42)
[2019-01-21] MEDS: MULTIVITAMINS THERAPEUTIC TAB PO SCH (08:42)
[2019-01-21] MEDS: LACTOBACILLUS RHAMNOSUS CAP PO SCH ×2 (08:42→20:48)
[2019-01-21] MEDS: FOLIC ACID 1 MG TAB PO SCH (08:42)
[2019-01-21] MEDS: ENOXAPARIN 30 MG/0.3 ML SYG SC SCH (08:44)
[2019-01-21] MEDS: DOCUSATE SODIUM 10 MG/ML (10ML CUP) PO SCH ×2 (08:47→20:28)
--- NOTE | 2019-01-21 09:48 | PN ---
DATE: 01/21/2019 SUBJECTIVE: The patient is stable. No events overnight. OBJECTIVE: VITAL SIGNS: Blood pressure is 121/57, pulse 73, respirations 18, temperature 98.2. HEENT: Head is normocephalic. NECK: Supple. HEART: Regular rate. LUNGS: Show diminished breath sounds at the base. ABDOMEN: Soft, nontender to palpation without rebound or guarding. EXTREMITIES: Negative for clubbing, cyanosis, no edema. DERMATOLOGIC: No rashes. MUSCULOSKELETAL: No joint effusion. The patient has had a noted wound. NEUROLOGIC: No change in exam. ASSESSMENT AND PLAN: 1. Acute encephalopathy on top of dementia, etiology is toxic metabolic. Continue to monitor. 2. Anemia with iron deficiency. The patient has completed a course of IV iron. Monitor hemoglobin and hematocrit levels. 3. Pulmonary nodules, pleural effusion. The patient's family refused thoracentesis, pending outpati ent PET scan and/or repeat imaging studies. 4. Malnutrition, weight loss. The patient is undergoing a malignancy screening. The patient will h ave outpatient colonoscopy and outpatient PET scan. 5. Lower extremity wound. Continue wound care. 6. Arrhythmia. Continue to monitor. 7. Constipation. Continue Colace. 8. Azotemia, improved. 9. Debility. Continue physical therapy. 10. Status post sepsis. 11. Gastrointestinal and deep vein thrombosis prophylaxis. Dictated By: GELY KIMBLE DO NR/NTS Conf#: [id number] DID#: [id number] CC: GELY KIMBLE DO; BEHZAD HUNG DPM; PRIMITIVO WHITEHEAD MD;*EndCC*
[2019-01-21] MEDS ORDERED: BARIUM SULFATE 135 ML (E-Z HD) PO ONE (11:24)
--- NOTE | 2019-01-21 13:18 | CONS ---
Assessment/Plan Assessment/Plan Assessment/Plan (Daily) Onychomycosis Right lower extremity abrasion Acute encephalopathy on top of dementia, etiology is toxic metabolic. Anemia with iron deficiency Malnutrition, weight loss. Debility Hx of sepsis Plan: Nails were debrided x10 with nail nipper. Continue with prevalon soft offloading boots for both heels. Patient is at risk for developing lower extremity decubitus wounds, patient is in appropriate offloading bed. Recommend triple antibiotic ointment to the right lower extremity abrasion site. Optimize nutrition and physical therapy to assist with weakness. Patient may follow up in outpatient [facility] clinic Consultation Date/Type/Reason Admit Date/Time Jan 08, 2019 at 14:50 Date/Time of Note DATE: 01/21/19 TIME: 13:18 Hx of Present Illness This is an 83-year-old male with a past medical history of dementia and history of weight loss who presented to [facility] after suffering a fall. The patient upon arrival to the outside hospital was noted to be septic secondary to pneumonia. The patient also noted to have severe hypernatremia, acute kidney injury, non-STEMI, and encephalopathic. The patient was treated with IV fluids, IV diuretics, and IV hydration with resolution of pneumonia and hyponatremia. The patient, however, was also noted to have severe malnutrition, which was unclear. Workup included a CT scan of the brain, which showed no acute pathology. A chest x-ray was obtained, which did show a right lung nodule but in the setting of pneumonia, it could not be ruled out for possible reaction process. The patient was eventually stabilized and transferred to [facility] for further care and rehabilitation. Patient presents to the floor with elongated and thickened toe nails. Patient is unable to cut his own nails. ROS Neg except HPI Past Medical History 1. Status post sepsis. 2. Status post pneumonia. 3. Acute kidney injury. 4. Status post non-ST elevation [place]. 5. Right pulmonary nodule. 6. Malnutrition. 7. Dysphagia. 8. Sacral and heel blanchable erythema 8. Impairments in self-care, mobility and cognition. Medications Current Medications Acetaminophen (Tylenol Tab) 650 mg Q6H PRN PO MILD PAIN(1-3)OR ELEVATED TEMP; Start 01/08/19 at 16:30 Aluminum Hydroxide (Aluminum Hydroxide) 30 ml Q6H PRN PO GASTROINTESTINAL UPSET; Start 01/08/19 at 16:30 Lactobacillus Acidophilus/ Rhamnosus (Culturelle) 1 cap BID PO Last administe red on 01/21/19 08:42; Admin Dose 1 CAP; Start 01/08/19 at 21:00 Ondansetron HCl (Zofran Inj) 4 mg Q6H PRN IV NAUSEA AND/OR VOMITING; Start 01/08/19 at 16:30 Senna (Senokot) 1 tab HS PO Last administered on 01/13/19 20:48; Admin Dose 1 TAB; Start 01/08/19 at 21:00 Magnesium Hydroxide (Milk Of Mag) 30 ml BID PRN PO CONSTIPATION; Start 01/08/19 at 16:30 Lactulose (Enulose) 20 gm DAILY PRN PO CONSTIPATION; Start 01/08/19 at 16:30 Bisacodyl (Dulcolax Supp) 10 mg DAILY PRN [place] CONSTIPATION; Start 01/08/19 at 16:30 Docusate Sodium (Colace Liquid Cup) 100 mg BID PO Last administered on 01/19/19 09:21; Admin Dose 100 MG; Start 01/09/19 at 09:00 Famotidine (Pepcid) 20 mg BID PO Last administered on 01/21/19 08:42; Admin Dose 20 MG; Start 01/09/19 at 10:00 Melatonin (Melatonin) 5 mg HS PRN PO SLEEP; Start 01/09/19 at 10:30 Multivitamins Therapeutic (Theragran) 1 tab DAILY PO Last administered on 01/21/19 08:42; Admin Dose 1 TAB; Start 01/09/19 at 12:00 Folic Acid (Folic Acid) 1 mg DAILY PO Last administered on 01/21/19 08:42; Admin Dose 1 MG; Start 01/09/19 at 12:00 Ascorbic Acid (Vitamin C) 500 mg DAILY PO Last administered on 01/21/19 08:42; Admin Dose 500 MG; Start 01/09/19 at 12:00 Enoxaparin Sodium (Lovenox) 30 mg DAILY SC Last administered on 01/21/19 08:44; Admin Dose 30 MG; Start 01/19/19 at 09:00 Vitamin A/Vitamin D (Vitamin A & D Oint) 1 applic BID PRN TOP DRY LIPS; Start 01/19/19 at 15:00 Allergies: Coded Allergies: No Known Allergy (Unverified , 01/08/19) Past Surgical History Past Surgical Hx: other Family History Significant Family History: no pertinent family hx Social History Smoking Status: Never smoker Exam/Review of Systems Exam Vitals Vital Signs Date Temp Pulse Resp B/P (MAP) Pulse Ox O2 O2 Flow FiO2 Time Delivery Rate 01/21/19 98.2 60 18 137/62 97 Room Air 08:30 (87) Intake and Output 01/20/19 01/20/19 01/21/19 1414:59 22:59 06:59 IntakeIntake Total 1850 ml 240 ml OutputOutput Total 800 ml BalanceBalance 1050 ml 240 ml Exam Weakly palpable DP/PT pulses Palpable popliteal pulses Right lower extremity medial leg abrasion with dried sanguinous crust formation, no purulence or fluctuance appreciated No deep tissue injuries to the heel b/l appreciated mycotic thickened toe nails x 10 Muscle atrophy appreciated. 4/5 muscle strength to the feet in all compartments. Results Result Diagram: 01/19/19 0858 01/17/19 0631 Medications Medication Current Medications Acetaminophen (Tylenol Tab) 650 mg Q6H PRN PO MILD PAIN(1-3)OR ELEVATED TEMP; Start 01/08/19 at 16:30 Aluminum Hydroxide (Aluminum Hydroxide) 30 ml Q6H PRN PO GASTROINTESTINAL UPSET; Start 01/08/19 at 16:30 Lactobacillus Acidophilus/ Rhamnosus (Culturelle) 1 cap BID PO Last administered on 01/21/19at 08:42; Admin Dose 1 CAP; Start 01/08/19 at 21:00 Ondansetron HCl (Zofran Inj) 4 mg Q6H PRN IV NAUSEA AND/OR VOMITING; Start 01/08/19 at 16:30 Senna (Senokot) 1 tab HS PO Last administered on 01/13/19at 20:48; Admin Dose 1 TAB; Start 01/08/19 at 21:00 Magnesium Hydroxide (Milk Of Mag) 30 ml BID PRN PO CONSTIPATION; Start 01/08/19 at 16:30 Lactulose (Enulose) 20 gm DAILY PRN PO CONSTIPATION; Start 01/08/19 at 16:30 Bisacodyl (Dulcolax Supp) 10 mg DAILY PRN [place] CONSTIPATION; Start 01/08/19 at 16:30 Docusate Sodium (Colace Liquid Cup) 100 mg BID PO Last administered on 01/19/19 09:21; Admin Dose 100 MG; Start 01/09/19 at 09:00 Famotidine (Pepcid) 20 mg BID PO Last administered on 01/21/19 08:42; Admin Dose 20 MG; Start 01/09/19 at 10:00 Melatonin (Melatonin) 5 mg HS PRN PO SLEEP; Start 01/09/19 at 10:30 Multivitamins Therapeutic (Theragran) 1 tab DAILY PO Last administered on 01/21/19 08:42; Admin Dose 1 TAB; Start 01/09/19 at 12:00 Folic Acid (Folic Acid) 1 mg DAILY PO Last administered on 01/21/19 08:42; Admin Dose 1 MG; Start 01/09/19 at 12:00 Ascorbic Acid (Vitamin C) 500 mg DAILY PO Last administered on 01/21/19 08:42; Admin Dose 500 MG; Start 01/09/19 at 12:00 Enoxaparin Sodium (Lovenox) 30 mg DAILY SC Last administered on 01/21/19 08:44; Admin Dose 30 MG; Start 01/19/19 at 09:00 Vitamin A/Vitamin D (Vitamin A & D Oint) 1 applic BID PRN TOP DRY LIPS; Start 01/19/19 at 15:00 JOSE ALBERTO NAVARRO DPM Jan 21, 2019 13:18
--- NOTE | 2019-01-21 13:32 | PN ---
Date/Time of Note Date/Time of Note DATE: 01/21/19 TIME: 13:32 Objective Vital Signs Date Temp Pulse Resp B/P (MAP) Pulse Ox O2 O2 Flow FiO2 Time Delivery Rate 01/21/19 98.2 60 18 137/62 97 Room Air 08:30 (87) Intake and Output 01/20/19 01/20/19 01/21/19 1515:00 23:00 07:00 IntakeIntake Total 1850 ml 240 ml OutputOutput Total 800 ml BalanceBalance 1050 ml 240 ml Exam INTERDISCIPLINARY TEAM CONFERENCE Physical Exam: Pulm- Abd- BOWEL- Cont BLADDER-Cont/incont SKIN- improving OT- DRESSING- BATHING- TOILETING- PT- BED MOBILITY- mod TRANSFERS- mod AMBULATION- mod SPEECH- COGNITION- mod Dysphagia- videofluoro scheduled A/P- Interdisciplinary team conference held today. Please see interdisciplinary sheet. Working toward d.cShara on 01/26 with post discharge follow up of physical therapy, occupational therapy. Results/Medications Result Diagram: 01/19/19 0858 01/17/19 0631 Medications Current Medications Acetaminophen (Tylenol Tab) 650 mg Q6H PRN PO MILD PAIN(1-3)OR ELEVATED TEMP; Start 01/08/19 at 16:30 Aluminum Hydroxide (Aluminum Hydroxide) 30 ml Q6H PRN PO GASTROINTESTINAL UPSET; Start 01/08/19 at 16:30 Lactobacillus Acidophilus/ Rhamnosus (Culturelle) 1 cap BID PO Last administered on 01/21/19at 08:42; Admin Dose 1 CAP; Start 01/08/19 at 21:00 Ondansetron HCl (Zofran Inj) 4 mg Q6H PRN IV NAUSEA AND/OR VOMITING; Start 01/08/19 at 16:30 Senna (Senokot) 1 tab HS PO Last administered on 01/13/19at 20:48; Admin Dose 1 TAB; Start 01/08/19 at 21:00 Magnesium Hydroxide (Milk Of Mag) 30 ml BID PRN PO CONSTIPATION; Start 01/08/19 at 16:30 Lactulose (Enulose) 20 gm DAILY PRN PO CONSTIPATION; Start 01/08/19 at 16:30 Bisacodyl (Dulcolax Supp) 10 mg DAILY PRN [place] CONSTIPATION; Start 01/08/19 at 16:30 Docusate Sodium (Colace Liquid Cup) 100 mg BID PO Last administered on 01/19/19 09:21; Admin Dose 100 MG; Start 01/09/19 at 09:00 Famotidine (Pepcid) 20 mg BID PO Last administered on 01/21/19 08:42; Admin Dose 20 MG; Start 01/09/19 at 10:00 Melatonin (Melatonin) 5 mg HS PRN PO SLEEP; Start 01/09/19 at 10:30 Multivitamins Therapeutic (Theragran) 1 tab DAILY PO Last administered on 01/21/19 08:42; Admin Dose 1 TAB; Start 01/09/19 at 12:00 Folic Acid (Folic Acid) 1 mg DAILY PO Last administered on 01/21/19 08:42; Admin Dose 1 MG; Start 01/09/19 at 12:00 Ascorbic Acid (Vitamin C) 500 mg DAILY PO Last administered on 01/21/19 08:42; Admin Dose 500 MG; Start 01/09/19 at 12:00 Enoxaparin Sodium (Lovenox) 30 mg DAILY SC Last administered on 01/21/19at 08:44; Admin Dose 30 MG; Start 01/19/19 at 09:00 Vitamin A/Vitamin D (Vitamin A & D Oint) 1 applic BID PRN TOP DRY LIPS; Start 01/19/19 at 15:00 Neomycin/ Polymyxin/ Bacitracin (Neosporin Topical Oint) 1 applic DAILY TOP ; Start 01/22/19 at 09:00; Status PRIMITIVO TRIANA MD Jan 21, 2019 13:32
[2019-01-21 14:26] VITALS: BP 109/53; PULSE 72; RESP 18
--- NOTE | 2019-01-21 19:26 | PN ---
DATE: 01/21/2019 PSYCHOLOGY -- INDIVIDUAL SESSION -- 12218 This is a followup on a patient who was seen last week. The patient was seen just prior to being yoanna en down for a swallowing study. The patient has made progress in the program. He is still very conf used but less so than he had been. He does have a history of mild dementia and this has affected his ability to think clearly, but he has made some definite progress while being in the program. Dictated By: MICHELLE LUTHER PHD RK/EUGENE Conf#: [id number] DID#: [id number] CC: PRIMITIVO WHITEHEAD MD;*EndCC*
[2019-01-21 20:00] VITALS: BP 122/57; PULSE 68; RESP 18
[2019-01-21] MEDS: SENNA TAB PO SCH (20:28)
[2019-01-22 02:00] VITALS: BP 118/60; PULSE 65; RESP 18
[2019-01-22 07:30] VITALS: BP 134/61; PULSE 55; RESP 18
--- NOTE | 2019-01-22 08:50 | PN ---
DATE: 01/22/2019 SUBJECTIVE: The patient is stable, no events overnight. No fevers, chills, nausea, vomiting. OBJECTIVE: VITAL SIGNS: Blood pressure is 137/62, pulse 72, respiration 18, temperature 98.4. HEENT: Head is normocephalic. NECK: Supple. HEART: Regular rate. LUNGS: Show diminished breath sounds at the base. ABDOMEN: Soft, nontender to palpation without rebound or guarding. EXTREMITIES: Negative for clubbing, cyanosis, no edema. DERMATOLOGIC: No rashes. MUSCULOSKELETAL: No joint effusion. NEUROLOGIC: No change in exam. MEDICATIONS: The patient's medications have been reviewed. LABORATORY DATA: Has been reviewed. ASSESSMENT AND PLAN: 1. Acute encephalopathy on top of dementia, etiology toxic metabolic. The patient is clinically imp roving. Continue to monitor. 2. Anemia of iron deficiency. Patient completed a course of IV iron. Hemoglobin levels have improv ed. 3. Pulmonary nodule, pleural effusion. The patient's family refused thoracentesis. Recommend outpa tient PET scan repeat imaging. 4. Malnutrition, weight loss, malignancy workup is ongoing. The patient to have outpatient colonosc opy and PET scan. 5. Lower extremity wounds. Continue wound care. 6. Arrhythmia. Continue to monitor. 7. Constipation. Continue Colace. 8. Azotemia, improving. 9. Debility. Continue physical therapy. 10. Status post sepsis. 11. Gastrointestinal and deep vein thrombosis prophylaxis. Dictated By: GELY MARTINEZ/NTS Conf#: [id number] DID#: [id number] CC: PRIMITIVO WHITEHEAD MD;*EndCC*
[2019-01-22] MEDS: MULTIVITAMINS THERAPEUTIC TAB PO SCH (08:56)
[2019-01-22] MEDS: LACTOBACILLUS RHAMNOSUS CAP PO SCH ×2 (08:56→20:29)
[2019-01-22] MEDS: NEOMYC/POLYMYX/BACIT 30 GM OINT TOP SCH (08:56)
[2019-01-22] MEDS: ENOXAPARIN 30 MG/0.3 ML SYG SC SCH (08:56)
[2019-01-22] MEDS: ASCORBIC ACID 500 MG TAB PO SCH (08:56)
[2019-01-22] MEDS: FAMOTIDINE 20 MG TAB PO SCH ×2 (08:56→20:30)
[2019-01-22] MEDS: FOLIC ACID 1 MG TAB PO SCH (08:56)
[2019-01-22] MEDS: DOCUSATE SODIUM 10 MG/ML (10ML CUP) PO SCH ×2 (08:59→20:35)
--- NOTE | 2019-01-22 13:53 | PN ---
Date/Time of Note Date/Time of Note DATE: 01/22/19 TIME: 13:49 Subjective Patient caregiver training ongoing Objective Vital Signs Date Temp Pulse Resp B/P (MAP) Pulse Ox O2 O2 Flow FiO2 Time Delivery Rate 01/22/19 97.8 55 18 134/61 100 Room Air 07:30 (85) Intake and Output 01/21/19 01/21/19 01/22/19 1515:00 23:00 07:00 IntakeIntake Total 960 ml 1050 ml OutputOutput Total 400 ml BalanceBalance 560 ml 1050 ml Exam pulm-cta abd-soft min ambulation Results/Medications Result Diagram: 01/19/19 0858 Medications Current Medications Acetaminophen (Tylenol Tab) 650 mg Q6H PRN PO MILD PAIN(1-3)OR ELEVATED TEMP Last administered on 01/21/19at 21:12; Admin Dose 650 MG; Start 01/08/19 at 16:30 Aluminum Hydroxide (Aluminum Hydroxide) 30 ml Q6H PRN PO GASTROINTESTINAL UPSET; Start 01/08/19 at 16:30 Lactobacillus Acidophilus/ Rhamnosus (Culturelle) 1 cap BID PO Last administered on 01/22/19at 08:56; Admin Dose 1 CAP; Start 01/08/19 at 21:00 Ondansetron HCl (Zofran Inj) 4 mg Q6H PRN IV NAUSEA AND/OR VOMITING; Start 01/08/19 at 16:30 Senna (Senokot) 1 tab HS PO Last administered on 01/13/19at 20:48; Admin Dose 1 TAB; Start 01/08/19 at 21:00 Magnesium Hydroxide (Milk Of Mag) 30 ml BID PRN PO CONSTIPATION; Start 01/08/19 at 16:30 Lactulose (Enulose) 20 gm DAILY PRN PO CONSTIPATION; Start 01/08/19 at 16:30 Bisacodyl (Dulcolax Supp) 10 mg DAILY PRN [place] CONSTIPATION; Start 01/08/19 at 16:30 Docusate Sodium (Colace Liquid Cup) 100 mg BID PO Last administered on 01/02 07/20at 09:21; Admin Dose 100 MG; Start 01/09/19 at 09:00 Famotidine (Pepcid) 20 mg BID PO Last administered on 01/22/19at 08:56; Admin Dose 20 MG; Start 01/09/19 at 10:00 Melatonin (Melatonin) 5 mg HS PRN PO SLEEP; Start 01/09/19 at 10:30 Multivitamins Therapeutic (Theragran) 1 tab DAILY PO Last administered on 01/22/19 08:56; Admin Dose 1 TAB; Start 01/09/19 at 12:00 Folic Acid (Folic Acid) 1 mg DAILY PO Last administered on 01/22/19 08:56; Admin Dose 1 MG; Start 01/09/19 at 12:00 Ascorbic Acid (Vitamin C) 500 mg DAILY PO Last administered on 01/22/19 08:56; Admin Dose 500 MG; Start 01/09/19 at 12:00 Enoxaparin Sodium (Lovenox) 30 mg DAILY SC Last administered on 01/22/19 08:56; Admin Dose 30 MG; Start 01/19/19 at 09:00 Vitamin A/Vitamin D (Vitamin A & D Oint) 1 applic BID PRN TOP DRY LIPS; Start 01/19/19 at 15:00 Neomycin/ Polymyxin/ Bacitracin (Neosporin Topical Oint) 1 applic DAILY TOP Last administered on 01/22/19 08:56; Admin Dose 1 APPLIC; Start 01/22/19 at 09:00 Assessment/Plan Additional Assessment/Plan Rehab- Toxic metabolic encephalopathy superimposed on mild dementia; Debility Patient continues to require encouragement for activities, but has been improving. Family present for caregiver training, but now concerned with whether they can provide the assistance necessary at home. SW workingwith family on dc planning. Integ- continue wound care, off loading, increased p.o. intake Status post sepsis. Status post pneumonia. Acute kidney injury. Status post non-ST elevation [place]. Right pulmonary nodule- f/b pulm Malnutrition- improving PO intake Dysphagia-speech PRIMITIVO HWITEHEAD MD Jan 22, 2019 13:52
[2019-01-22 14:00] VITALS: BP 120/59; PULSE 64; RESP 18
[2019-01-22 20:06] VITALS: BP 130/62; PULSE 71; RESP 18
[2019-01-22] MEDS: SENNA TAB PO SCH (20:35)
[2019-01-23 02:16] VITALS: BP 116/67; PULSE 60; RESP 18
[2019-01-23 07:30] VITALS: BP 144/65; PULSE 65; RESP 20
--- NOTE | 2019-01-23 08:25 | PN ---
DATE: 01/23/2019 SUBJECTIVE: The patient remains stable. No events overnight. The patient is working with physical therapy. OBJECTIVE: VITAL SIGNS: Blood pressure is 116/67, respirations 18, pulse 60, temperature 97.9. HEENT: Head is normocephalic. NECK: Supple. HEART: Regular rate. LUNGS: Show diminished breath sounds at the base. ABDOMEN: Soft, nontender to palpation without rebound or guarding. EXTREMITIES: Negative for clubbing, cyanosis, no edema. DERMATOLOGIC: No rashes. MUSCULOSKELETAL: No joint effusion. NEUROLOGIC: No change in exam. MEDICATIONS: Reviewed. LABORATORY DATA: Reviewed. ASSESSMENT AND PLAN: 1. Acute encephalopathy on top of dementia, etiology is toxic metabolic. The patient is clinically improving. Continue to monitor. 2. Anemia with iron deficiency. The patient is status post a course of IV iron. Monitor hemoglobin and hematocrit levels. 3. Pulmonary nodules, pleural effusion. The patient's family refused thoracentesis. Recommend outp atient PET scan. 4. Malnutrition, weight loss, malignancy. Workup is ongoing. The patient will have an outpatient c olonoscopy and PET CT scan. 5. Lower extremity wounds. Continue wound care. Follow up with podiatry. 6. Arrhythmia. Continue to monitor. 7. Constipation. Continue Colace. 8. Azotemia, improving. 9. Debility. Continue physical therapy. 10. Status post sepsis. 11. Gastrointestinal and deep vein thrombosis prophylaxis. Dictated By: GELY KIMBLE DO NR/NTS Conf#: [id number] DID#: [id number] CC: BEHZAD HUNG DPM; PRIMITIVO WHITEHEAD MD; GELY KIMBLE DO;*EndCC*
[2019-01-23] MEDS: FOLIC ACID 1 MG TAB PO SCH (08:29)
[2019-01-23] MEDS: ASCORBIC ACID 500 MG TAB PO SCH (08:29)
[2019-01-23] MEDS: FAMOTIDINE 20 MG TAB PO SCH (08:29)
[2019-01-23] MEDS: MULTIVITAMINS THERAPEUTIC TAB PO SCH (08:29)
[2019-01-23] MEDS: ENOXAPARIN 30 MG/0.3 ML SYG SC SCH (08:33)
[2019-01-23] MEDS: LACTOBACILLUS RHAMNOSUS CAP PO SCH (09:00)
[2019-01-23] MEDS: NEOMYC/POLYMYX/BACIT 30 GM OINT TOP SCH (09:00)
[2019-01-23] MEDS: DOCUSATE SODIUM 10 MG/ML (10ML CUP) PO SCH (09:00)
--- NOTE | 2019-01-23 12:46 | DS ---
Date/Time of Note Date/Time of Note DATE: 01/23/19 TIME: 12:41 Discharge Summary Admission/Discharge Info Admit Date/Time Jan 08, 2019 at 14:50 Discharge Date/Time Discharge Diagnosis 1.Toxic metabolic encephalopathy superimposed on mild dementia, improved from admission 2. Status post sepsis. 3. Status post pneumonia; pulm nodule 4. Acute kidney injury. 5. Status post non-ST elevation [place]. 6. Malnutrition, improved po intake 7. Dysphagia. 8. Sacral and heel blanchable erythema, wounds on LE improved 8. Improvements in self-care, mobility and cognition. Patient Condition: Good Hospital Course The patient was admitted for comprehensive interdisciplinary rehabilitation and made gradual gains from a Max level to a min level for self care tasks and mobility including ambulation of 150 feet. Patient was followed closely for medical issues including pulmonary, nutritional status, and integument and made progress. Family initially reported they would be able to provide necessary care at home, but now reports they would like continued care at lower level of care. Patietnt is ready to discharge to a lower level of care. The DC meds are per the medication reconciliation sheet. The patient will follow up with PMD upon DC. Primary Care Provider Not On Staff Doctor PRIMITIVO WHITEHEAD MD Jan 23, 2019 12:46
[2019-01-23 14:31] VITALS: BP 103/55; PULSE 63; RESP 18
== END 2019-01-23 16:00 | DRG 92 ==
LOC: VRC 14:50
PROVIDERS: ADMIT Physical Medicine & Rehabilitation; ATTEND Internal Medicine
PROC: F07Z5ZZ Bed Mobility Treatment (ICD-10-PCS; principal; 2019-01-08)
PROC: F08Z2ZZ Grooming/Personal Hygiene Treatment (ICD-10-PCS; 2019-01-08)
PROC: F06Z6ZZ Communicative/Cognitive Integration Skills Treatment (ICD-10-PCS; 2019-01-08)
DX: G92 Toxic encephalopathy (principal); N17.9 Acute kidney failure, unspecified; E46 Unspecified protein-calorie malnutrition; Z68.1 Body mass index [BMI] 19.9 or less, adult; J90 Pleural effusion, not elsewhere classified; F03.90 Unspecified dementia, unspecified severity, without behavioral disturbance, psychotic disturbance, mood disturbance, and anxiety; R13.10 Dysphagia, unspecified; L53.8 Other specified erythematous conditions; I49.9 Cardiac arrhythmia, unspecified; K59.00 Constipation, unspecified; R79.89 Other specified abnormal findings of blood chemistry; R53.81 Other malaise; B35.1 Tinea unguium; D50.9 Iron deficiency anemia, unspecified; R91.8 Other nonspecific abnormal finding of lung field; G47.00 Insomnia, unspecified
CPT/HCPCS: 71045; 71250; 74230; 80048; 80053; 81003; 82270; 82728; 83540; 83735; 84100; 84153; 84154; 85025; 85049; 85610; 85670; 85730; 87081; 87086; 92507; 92523; 92526; 92610; 92611; 97110; 97112; 97116; 97163; 97165; 97530; 97535; 97542; J1650; J2916